=== PATIENT | female | born 1965 | race African-American/Black ===

== ENCOUNTER 2024-03-21 06:58 | Inpatient (IN) | payer OTHER ==
[~2024-03-21] VITALS: Ht 165.1 cm; Wt 81.2 kg
[2024-03-21 08:25] LABS: BASOPHILS % 0.7 % (0.0-2.0); HEMATOCRIT. 37.9 % (36.0-48.0); HEMOGLOBIN. 11.7 g/dL (12.0-16.0); LYMPHOCYTES % 11.4 % (20.0-50.0); MEAN CORPUSCULAR HEMOGLOBIN 26.3 pg (28.0-32.0); MEAN CORPUSCULAR HGB CONC 30.9 g/dL (31.0-37.0); MEAN CORPUSCULAR VOLUME 84.9 fL (81.0-99.0); MEAN PLATELET VOLUME 7.2 fl (7.4-10.4); MONOCYTES % 9.5 % (2.0-8.0); NEUTROPHILS % 78.4 % (40.0-76.0); PLATELET 394 x1000/uL (130-400); RED BLOOD CELL COUNT 4.47 mill/uL (4.2-5.4); RED CELL DISTRIBUTION WIDTH 21.2 % (11.6-14.6); WHITE BLOOD COUNT 3.9 x1000/uL (4.5-11.0)
[2024-03-21 08:38] LABS: PROTHROMBIN TIME 11.3 sec (9.6-11.0)
[2024-03-21 08:39] LABS: CHLORIDE 103 mEq/L (98-107); POTASSIUM 3.7 mEq/L (3.5-5.1); SODIUM 139 mEq/L (136-145)
[2024-03-21 08:40] LABS: CARBON DIOXIDE 24 mEq/L (21-32)
[2024-03-21 08:41] LABS: CALCIUM 8.1 mg/dL (8.7-10.4)
[2024-03-21 08:45] LABS: GLUCOSE 157 mg/dL (70-105); TROPONIN I HIGH SENSITIVITY 12 ng/L (3.0-34); UREA NITROGEN BLOOD 28 mg/dL (9-23)
[2024-03-21 08:47] LABS: ALANINE AMINOTRANSFERASE < 7 IU/L (10-49); ALBUMIN 3.7 g/dL (3.2-4.8); ASPARTATE AMINOTRANSFERASE 22 IU/L (<34)
[2024-03-21 08:48] LABS: BILIRUBIN TOTAL 0.4 mg/dL (0.1-1.0); CREATININE 7.2 mg/dL (0.6-1.0); PROTEIN TOTAL 8.3 g/dL (6.0-8.3)
[2024-03-21 09:19] LABS: CLARITY URINE TURBID (CLEAR); COLOR URINE DARK YELLOW (YELLOW); GLUCOSE URINE NEGATIVE (NEGATIVE); KETONES URINE TRACE (NEGATIVE); LEUKOCYTE ESTERASE URINE 3+ (NEGATIVE); NITRITE URINE NEGATIVE (NEGATIVE); OCCULT BLOOD URINE TRACE (NEGATIVE); PH URINE 6.5 (4.5-8.0); PROTEIN URINE 3+ (NEGATIVE); SPECIFIC GRAVITY URINE 1.017 (1.005-1.030)
[2024-03-21 09:41] LABS: SQUAMOUS EPITHELIAL CELL URINE RARE /lpf (RARE/1+); WBC URINE TNTC /hpf (0-2)
[2024-03-21 09:42] LABS: BACTERIA URINE 4+
[2024-03-21] MEDS: PIPERACILLIN/TAZO 3.375G/50ML 50 ML IV ONE (09:47)
[2024-03-21] MEDS: VANCOMYCIN 1G PREMIX 200 ML IV ONE (10:09)
[2024-03-21] MEDS: ACETAMINOPHEN 325MG TABLET PO ONE (11:10)
[2024-03-21] MEDS ORDERED: ONDANSETRON HCL 4MG/2ML INJ IV PRN (15:15)
[2024-03-21] MEDS ORDERED: PIPERACILLIN/TAZOBACTAM 3.375 G in DEXTROSE 5% WATER 50 ML IV SCH (15:15)
[2024-03-21] MEDS ORDERED: IPRATROPIUM/ALBUTEROL 0.5-3(2.5)MG/3ML NEB HHN PRN (15:15)
[2024-03-21 15:23] LABS: HEPATITIS B SURFACE ANTIGEN NEGATIVE (Negative)
[2024-03-21 15:44] LABS: HEPATITIS A AB IGM NEGATIVE (Negative)
[2024-03-21 15:45] LABS: HEPATITIS B CORE AB IGM NEGATIVE (Negative); HEPATITIS C AB NON REACTIVE (Neg) (Negative)
[2024-03-21] MEDS ORDERED: VANCOMYCIN 500MG PREMIX 100 ML IV NR (16:00)
[2024-03-21] MEDS ORDERED: DEXTROSE 50% WATER 50ML SYRINGE IV PRN ×2 (16:45→17:30)
[2024-03-21 17:00] VITALS: BP 133/71; PULSE 91; RESP 18; TEMP 97.9
[2024-03-21] MEDS ORDERED: BLOOD SUGAR DIAGNOSTIC STRIP TEST SCH (17:10)
[2024-03-21] MEDS ORDERED: INSULIN LISPRO 100 UNITS/ML SUBCUT SCH (17:40)
[2024-03-21] MEDS: INSULIN LISPRO 100 UNITS/ML SUBCUT SCH (19:04)
[2024-03-21 20:00] VITALS: BP 134/73; PULSE 94; RESP 18; TEMP 99
[2024-03-21] MEDS: PIPERACILLIN/TAZO 3.375G/50ML IV SCH (21:16)
[2024-03-21] MEDS: VANCOMYCIN 500MG PREMIX 100 ML IV NR (21:16)
[2024-03-21] MEDS: BLOOD SUGAR DIAGNOSTIC STRIP TEST SCH (21:17)
[2024-03-21] MEDS: INSULIN LISPRO 100 UNITS/ML SUBCUT NR (23:46)
[2024-03-22] VITALS (10 sets, daily range): BP systolic 115–152; BP diastolic 55–88; PULSE 67–86; RESP 16–18; TEMP 97.3–98.6
[2024-03-22] MEDS: ACETAMINOPHEN 325MG TABLET PO PRN (03:10)
[2024-03-22] MEDS ORDERED: HYDR100T26 PO (05:49)
[2024-03-22] MEDS ORDERED: ATEN-42 PO (05:49)
[2024-03-22 08:14] LABS: HEMOGLOBIN. 9.1 g/dL (12.0-16.0); MEAN CORPUSCULAR HEMOGLOBIN 25.6 pg (28.0-32.0); MEAN CORPUSCULAR HGB CONC 31.2 g/dL (31.0-37.0); MEAN PLATELET VOLUME 7.3 fl (7.4-10.4); PLATELET 285 x1000/uL (130-400); RED BLOOD CELL COUNT 3.53 mill/uL (4.2-5.4); RED CELL DISTRIBUTION WIDTH 20.7 % (11.6-14.6); WHITE BLOOD COUNT 3.8 x1000/uL (4.5-11.0)
[2024-03-22 08:17] LABS: DIFFERENTIAL COMMENT 1
[2024-03-22 08:43] LABS: CARBON DIOXIDE 24 mEq/L (21-32); CHLORIDE 99 mEq/L (98-107); POTASSIUM 4.2 mEq/L (3.5-5.1); SODIUM 135 mEq/L (136-145)
[2024-03-22 08:49] LABS: GLUCOSE 298 mg/dL (70-105); UREA NITROGEN BLOOD 41 mg/dL (9-23)
[2024-03-22 08:50] LABS: ALANINE AMINOTRANSFERASE < 7 IU/L (10-49); ALBUMIN 3.1 g/dL (3.2-4.8)
[2024-03-22 08:51] LABS: CREATININE 8.3 mg/dL (0.6-1.0)
[2024-03-22 08:59] LABS: CALCIUM 7.3 mg/dL (8.7-10.4)
[2024-03-22 09:05] LABS: ASPARTATE AMINOTRANSFERASE 13 IU/L (<34); BILIRUBIN TOTAL 0.5 mg/dL (0.1-1.0)
[2024-03-22 09:06] LABS: PROTEIN TOTAL 6.7 g/dL (6.0-8.3)
[2024-03-22 13:53] LABS: ANISOCYTOSIS 2+; PLATELET ESTIMATE NORMAL
[2024-03-22] MEDS: INSULIN GLARGINE 100 UNITS/ML SUBCUT SCH (22:11)
[2024-03-23] VITALS (7 sets, daily range): BP systolic 154–167; BP diastolic 82–97; PULSE 77–86; RESP 18–20; TEMP 97.2–98.2
[2024-03-23 15:21] LABS: HEMATOCRIT. 31.6 % (36.0-48.0); HEMOGLOBIN. 9.9 g/dL (12.0-16.0); MEAN CORPUSCULAR HEMOGLOBIN 26.1 pg (28.0-32.0); MEAN CORPUSCULAR HGB CONC 31.4 g/dL (31.0-37.0); MEAN CORPUSCULAR VOLUME 83.1 fL (81.0-99.0); MEAN PLATELET VOLUME 6.9 fl (7.4-10.4); PLATELET 284 x1000/uL (130-400); RED CELL DISTRIBUTION WIDTH 20.2 % (11.6-14.6); WHITE BLOOD COUNT 3.1 x1000/uL (4.5-11.0)
[2024-03-23 15:27] LABS: DIFFERENTIAL COMMENT 1
[2024-03-23 15:29] LABS: POTASSIUM 3.4 mEq/L (3.5-5.1)
[2024-03-23 15:30] LABS: CALCIUM 7.3 mg/dL (8.7-10.4)
[2024-03-23 15:47] LABS: CREATININE 7.9 mg/dL (0.6-1.0)
[2024-03-23 16:05] LABS: ANISOCYTOSIS 1+; PLATELET ESTIMATE NORMAL
[2024-03-23] MEDS: CLONIDINE 0.1MG TABLET PO PRN (21:23)
[2024-03-23] MEDS: LINEZOLID 600MG TABLET PO SCH (21:35)
[2024-03-23] MEDS: DIPHENHYDRAMINE 50MG/ML VIAL IV PRN (21:35)
[2024-03-24] VITALS (15 sets, daily range): BP systolic 142–176; BP diastolic 83–99; PULSE 77–90; RESP 16–20; TEMP 97.2–98.6
[2024-03-24] MEDS: POTASSIUM CHLORIDE 20MEQ TABLET SR PO NR (06:31)
[2024-03-24 11:19] LABS: HEMATOCRIT. 33.6 % (36.0-48.0); HEMOGLOBIN. 10.5 g/dL (12.0-16.0); MEAN CORPUSCULAR HEMOGLOBIN 25.9 pg (28.0-32.0); MEAN CORPUSCULAR HGB CONC 31.2 g/dL (31.0-37.0); MEAN CORPUSCULAR VOLUME 82.9 fL (81.0-99.0); MEAN PLATELET VOLUME 7.3 fl (7.4-10.4); PLATELET 260 x1000/uL (130-400); RED BLOOD CELL COUNT 4.05 mill/uL (4.2-5.4); RED CELL DISTRIBUTION WIDTH 20.9 % (11.6-14.6); WHITE BLOOD COUNT 3.2 x1000/uL (4.5-11.0)
[2024-03-24 11:25] LABS: DIFFERENTIAL COMMENT 1; POTASSIUM 4.2 mEq/L (3.5-5.1)
[2024-03-24 11:26] LABS: CALCIUM 7.3 mg/dL (8.7-10.4)
[2024-03-24 12:03] LABS: CREATININE 8.5 mg/dL (0.6-1.0)
[2024-03-24 20:50] LABS: PLATELET ESTIMATE NORMAL
[2024-03-24 20:51] LABS: ANISOCYTOSIS 1+
[2024-03-25] VITALS: BP 137/72; PULSE 85; RESP 18; TEMP 97.8
[2024-03-25 04:00] VITALS: BP 159/93; PULSE 86; RESP 16; TEMP 97.9
[2024-03-25 07:26] LABS: HEMATOCRIT. 33.8 % (36.0-48.0); HEMOGLOBIN. 10.8 g/dL (12.0-16.0); MEAN CORPUSCULAR VOLUME 81.4 fL (81.0-99.0); MEAN PLATELET VOLUME 7.2 fl (7.4-10.4); PLATELET 237 x1000/uL (130-400); RED BLOOD CELL COUNT 4.15 mill/uL (4.2-5.4); RED CELL DISTRIBUTION WIDTH 20.7 % (11.6-14.6); WHITE BLOOD COUNT 3.4 x1000/uL (4.5-11.0)
[2024-03-25 07:29] LABS: DIFFERENTIAL COMMENT 1
[2024-03-25 08:00] VITALS: BP 156/84; PULSE 90; RESP 20; TEMP 98
[2024-03-25 08:01] LABS: POTASSIUM 3.9 mEq/L (3.5-5.1)
[2024-03-25 08:02] LABS: CALCIUM 7.6 mg/dL (8.7-10.4)
[2024-03-25 08:16] LABS: CREATININE 7.7 mg/dL (0.6-1.0)
[2024-03-25 11:04] LABS: ANISOCYTOSIS 2+; PLATELET ESTIMATE NORMAL
[2024-03-25] MEDS ORDERED: LOPERAMIDE HCL 2MG CAPSULE PO PRN (11:15)
[2024-03-25 12:00] VITALS: BP 159/85; PULSE 88; RESP 18; TEMP 97.7
[2024-03-25 16:00] VITALS: BP 159/83; PULSE 91; RESP 18; TEMP 98.1
[2024-03-25 20:00] VITALS: BP 160/82; PULSE 93; RESP 16; TEMP 97.1
[2024-03-25] MEDS ORDERED: AMOX1TAB16 MT (20:19)
[2024-03-25] MEDS ORDERED: LINE600T14 MT (20:19)
[2024-03-26] VITALS (8 sets, daily range): BP systolic 135–178; BP diastolic 77–100; PULSE 74–89; RESP 16–20; TEMP 97.3–98; O2SAT 100
[2024-03-26 07:21] LABS: CALCIUM 7.5 mg/dL (8.7-10.4); POTASSIUM 4.1 mEq/L (3.5-5.1)
[2024-03-26 07:34] LABS: CREATININE 8.7 mg/dL (0.6-1.0)
[2024-03-26 08:02] LABS: HEMATOCRIT 30.9 % (36.0-48.0); HEMOGLOBIN 9.9 g/dL (12.0-16.0); MEAN CORPUSCULAR HGB CONC 32.1 g/dL (31.0-37.0); MEAN CORPUSCULAR VOLUME 81.1 fL (81.0-99.0); PLATELET 220 x1000/uL (130-400); RED BLOOD CELL COUNT 3.81 mill/uL (4.2-5.4); RED CELL DISTRIBUTION WIDTH 20.5 % (11.6-14.6); WHITE BLOOD COUNT 3.2 x1000/uL (4.5-11.0)
== END 2024-03-26 14:30 | disposition home or self-care (01) | DRG 871 ==
LOC: ER 06:58 → 5WST 10:22 → EDBEDREQTM 10:32 → EDBEDREQ 10:32 → 8WST 16:35
PROVIDERS: ADMIT Internal Medicine; ATTEND Internal Medicine
PROC: 5A1D70Z Performance of Urinary Filtration, Intermittent, Less than 6 Hours Per Day (ICD-10-PCS; principal; 2024-03-22)
PROC: 5A1D70Z Performance of Urinary Filtration, Intermittent, Less than 6 Hours Per Day (ICD-10-PCS; 2024-03-24)
PROC: 5A1D70Z Performance of Urinary Filtration, Intermittent, Less than 6 Hours Per Day (ICD-10-PCS; 2024-03-26)
DX: A41.9 Sepsis, unspecified organism (principal); G93.41 Metabolic encephalopathy; J18.9 Pneumonia, unspecified organism; N18.6 End stage renal disease; N39.0 Urinary tract infection, site not specified; E46 Unspecified protein-calorie malnutrition; Z16.21 Resistance to vancomycin; I12.0 Hypertensive chronic kidney disease with stage 5 chronic kidney disease or end stage renal disease; E11.65 Type 2 diabetes mellitus with hyperglycemia; R60.0 Localized edema; D64.9 Anemia, unspecified; E11.22 Type 2 diabetes mellitus with diabetic chronic kidney disease; Z87.01 Personal history of pneumonia (recurrent); Z87.440 Personal history of urinary (tract) infections; Z99.2 Dependence on renal dialysis; Z79.4 Long term (current) use of insulin; Z68.29 Body mass index [BMI] 29.0-29.9, adult
CPT/HCPCS: 36415; 71045; 80048; 80053; 80202; 81003; 82962; 83036; 83605; 83735; 84100; 84145; 84484; 85025; 85027; 86705; 86709; 87077; 87186; 87340; 90935; 93005; 93970; 99285; J1200; J1815; J2543; J3370

== ENCOUNTER 2024-08-19 09:28 | Inpatient (IN) | payer OTHER, MEDICAID ==
[2024-08-19] VITALS (12 sets, daily range): BP systolic 107–169; BP diastolic 71–99; PULSE 78–94; RESP 18–22; TEMP 36.72516–37.00296; O2SAT 93–100
[~2024-08-19] VITALS: Ht 167.6 cm; Wt 65.8 kg
[~2024-08-19 09:28] MED LIST: AMOX1TAB16 MT; ATEN-42 PO; HYDR100T11 PO; LINE600T14 MT
[2024-08-19] MEDS: METHYLPREDNISOLONE SOD SUCC 125MG/2ML (ACT-O-VIAL) IV STA (10:57)
[2024-08-19 11:23] LABS: BASOPHILS % 0.7 % (0.0-2.0); HEMATOCRIT. 31.3 % (36.0-48.0); HEMOGLOBIN. 9.7 g/dL (12.0-16.0); LYMPHOCYTES % 15.4 % (20.0-50.0); MEAN CORPUSCULAR HEMOGLOBIN 27.3 pg (28.0-32.0); MEAN CORPUSCULAR HGB CONC 30.8 g/dL (31.0-37.0); MEAN CORPUSCULAR VOLUME 88.5 fL (81.0-99.0); MEAN PLATELET VOLUME 6.4 fl (7.4-10.4); MONOCYTES % 11.7 % (2.0-8.0); NEUTROPHILS % 65.2 % (40.0-76.0); PLATELET 229 x1000/uL (130-400); RED BLOOD CELL COUNT 3.53 mill/uL (4.2-5.4); RED CELL DISTRIBUTION WIDTH 20.4 % (11.6-14.6); WHITE BLOOD COUNT 4.8 x1000/uL (4.5-11.0)
[2024-08-19 11:31] LABS: CARBON DIOXIDE 25 mEq/L (21-32); CHLORIDE 102 mEq/L (98-107); POTASSIUM 4.3 mEq/L (3.5-5.1); SODIUM 137 mEq/L (136-145)
[2024-08-19 11:32] LABS: CALCIUM 9.4 mg/dL (8.7-10.4)
[2024-08-19 11:34] LABS: PROTHROMBIN TIME 10.7 sec (9.6-11.0)
[2024-08-19] MEDS: IPRATROPIUM BROMIDE (0.02%) 0.5MG/2.5ML NEB HHN STA (11:35)
[2024-08-19] MEDS: ALBUTEROL (0.083%) 2.5MG/3ML NEB HHN SCH (11:36)
[2024-08-19 11:37] LABS: GLUCOSE 286 mg/dL (70-105); UREA NITROGEN BLOOD 46 mg/dL (9-23)
[2024-08-19 11:47] LABS: CREATININE 7.4 mg/dL (0.6-1.0)
[2024-08-19 12:14] LABS: TROPONIN I HIGH SENSITIVITY 43 ng/L (3.0-34)
[2024-08-19] MEDS: HYDRALAZINE 20MG/ML VIAL IV ONE (13:02)
[2024-08-19] MEDS ORDERED: IPRATROPIUM/ALBUTEROL 0.5-3(2.5)MG/3ML NEB HHN PRN (13:15)
[2024-08-19] MEDS ORDERED: DOCUSATE SODIUM 100MG CAPSULE PO PRN (13:15)
[2024-08-19] MEDS ORDERED: MAGNESIUM/ALUMINUM HYDROXIDE/SIMETHICONE 30ML UDC PO PRN (13:15)
[2024-08-19] MEDS ORDERED: ONDANSETRON HCL 4MG/2ML INJ IV PRN (13:15)
[2024-08-19] MEDS ORDERED: GUAIFENESIN 200MG/10ML SUGAR FREE UDC PO PRN (13:15)
[2024-08-19] MEDS ORDERED: ACETAMINOPHEN 325MG TABLET PO PRN (13:15)
[2024-08-19] MEDS ORDERED: DEXTROSE 50% WATER 50ML SYRINGE IV PRN ×2 (13:30→14:00)
[2024-08-19] MEDS: FAMOTIDINE 20MG/2ML VIAL IV SCH (13:45)
[2024-08-19] MEDS ORDERED: LEVO25TA7 PO (13:47)
[2024-08-19] MEDS ORDERED: CALC667C PO (13:47)
[2024-08-19] MEDS ORDERED: CLOP75TA33 PO (13:47)
[2024-08-19] MEDS ORDERED: ASPI-1406 PO (13:47)
[2024-08-19] MEDS ORDERED: ATOR40TA70 PO (13:47)
[2024-08-19] MEDS: ASPIRIN 81MG EC TABLET PO SCH (14:00)
[2024-08-19] MEDS: CALCIUM ACETATE 667MG CAPSULE PO SCH (14:00)
[2024-08-19] MEDS: INSULIN GLARGINE 100 UNITS/ML SUBCUT SCH (14:00)
[2024-08-19] MEDS: CLOPIDOGREL 75MG TABLET PO SCH (14:00)
[2024-08-19] MEDS: LEVOTHYROXINE SODIUM 25MCG TABLET PO ONE (14:00)
[2024-08-19] MEDS: ENOXAPARIN 30MG/0.3ML SYR SUBCUT SCH (14:00)
[2024-08-19] MEDS: HYDRALAZINE HCL 100MG TABLET PO SCH (14:00)
[2024-08-19] MEDS: AMLODIPINE 10MG TABLET PO SCH (16:00)
[2024-08-19 16:02] LABS: IRON 38 ug/dL (50-170)
[2024-08-19 16:04] LABS: TROPONIN I HIGH SENSITIVITY 33 ng/L (3.0-34)
[2024-08-19 16:05] LABS: TOTAL IRON BINDING CAPACITY 227 ug/dl (250-425)
[2024-08-19 16:23] LABS: BETA HYDROXYBUTYRATE 0.9 mMol/L (0.0-0.3)
[2024-08-19] MEDS: BLOOD SUGAR DIAGNOSTIC STRIP TEST SCH (17:00)
[2024-08-19] MEDS ORDERED: LEVOTHYROXINE SODIUM 25MCG TABLET PO NR (18:30)
[2024-08-19] MEDS: INSULIN LISPRO 100 UNITS/ML SUBCUT SCH (18:55)
[2024-08-19] MEDS: ATORVASTATIN CALCIUM 40MG TABLET PO SCH (22:31)
[2024-08-19 23:40] LABS: POTASSIUM 5.1 mEq/L (3.5-5.1)
[2024-08-19 23:41] LABS: CALCIUM 9.4 mg/dL (8.7-10.4)
[2024-08-19] MEDS: CLONIDINE 0.1MG TABLET PO PRN (23:56)
[2024-08-19 23:59] LABS: CREATININE 5.8 mg/dL (0.6-1.0)
[2024-08-20] VITALS (10 sets, daily range): BP systolic 127–177; BP diastolic 61–100; PULSE 63–88; RESP 16–19; TEMP 36.16956–36.8072; O2SAT 100
[2024-08-20] MEDS: MORPHINE SULFATE 2 MG/ML INJ (NOT FOR IM USE) IV NR (00:51)
[2024-08-20 07:14] LABS: BASOPHILS % 0.5 % (0.0-2.0); HEMATOCRIT. 28.8 % (36.0-48.0); HEMOGLOBIN. 8.9 g/dL (12.0-16.0); LYMPHOCYTES % 9.1 % (20.0-50.0); MEAN CORPUSCULAR HEMOGLOBIN 27.4 pg (28.0-32.0); MEAN CORPUSCULAR HGB CONC 30.9 g/dL (31.0-37.0); MEAN CORPUSCULAR VOLUME 88.9 fL (81.0-99.0); MEAN PLATELET VOLUME 6.9 fl (7.4-10.4); MONOCYTES % 5.9 % (2.0-8.0); NEUTROPHILS % 84.5 % (40.0-76.0); PLATELET 196 x1000/uL (130-400); POTASSIUM 6.1 mEq/L (3.5-5.1); RED BLOOD CELL COUNT 3.24 mill/uL (4.2-5.4); RED CELL DISTRIBUTION WIDTH 20.9 % (11.6-14.6); WHITE BLOOD COUNT 4.4 x1000/uL (4.5-11.0)
[2024-08-20 07:21] LABS: ALANINE AMINOTRANSFERASE < 7 IU/L (10-49); ALBUMIN 3.9 g/dL (3.2-4.8); ASPARTATE AMINOTRANSFERASE 10 IU/L (<34); BILIRUBIN DIRECT 0.2 mg/dL (<=3.0); BILIRUBIN TOTAL 0.6 mg/dL (0.1-1.0); PROTEIN TOTAL 7.8 g/dL (6.0-8.3)
[2024-08-20 07:24] LABS: T4 FREE 0.94 ng/dL (0.89-1.76); THYROID STIMULATING HORMONE 1.06 uIU/mL (0.55-4.78)
[2024-08-20 07:44] LABS: CREATININE 6.3 mg/dL (0.6-1.0)
[2024-08-20] MEDS: MORPHINE SULFATE 2 MG/ML INJ (NOT FOR IM USE) IV PRN (08:47)
[2024-08-20] MEDS: INSULIN LISPRO 100 UNITS/ML SUBCUT NR (09:08)
[2024-08-20] MEDS ORDERED: SODIUM POLYSTYRENE SULFONATE 15 G/60 ML BOT PO ONE (09:15)
[2024-08-20] MEDS: ATENOLOL 25MG TABLET PO SCH (13:50)
[2024-08-20] MEDS: SODIUM ZIRCONIUM CYCLOSILICATE 10GM/PACKET PO NR (13:53)
[2024-08-20] MEDS: INSULIN LISPRO 100 UNITS/ML SUBCUT SCH ×2 (13:57)
[2024-08-20] MEDS: INSULIN GLARGINE 100 UNITS/ML SUBCUT SCH (21:22)
[2024-08-21 04:00] VITALS: BP 137/59; PULSE 66; RESP 19; TEMP 36.55848
[2024-08-21 07:10] LABS: HEMATOCRIT 32.1 % (36.0-48.0); HEMOGLOBIN 9.7 g/dL (12.0-16.0)
[2024-08-21 07:18] LABS: POTASSIUM 4.4 mEq/L (3.5-5.1)
[2024-08-21 07:19] LABS: CALCIUM 8.7 mg/dL (8.7-10.4)
[2024-08-21 07:26] LABS: PHOSPHORUS 2.8 mg/dL (2.5-4.9)
[2024-08-21 07:28] LABS: CREATININE 5.6 mg/dL (0.6-1.0)
[2024-08-21 08:00] VITALS: BP 125/65; PULSE 77; TEMP 36.114
[2024-08-21 10:50] LABS: POTASSIUM 4.1 mEq/L (3.5-5.1)
[2024-08-21 10:51] LABS: CALCIUM 8.5 mg/dL (8.7-10.4)
[2024-08-21 10:54] LABS: BASOPHILS % 0.8 % (0.0-2.0); EOSINOPHILS % 7.7 % (0.0-5.0); HEMATOCRIT. 31.2 % (36.0-48.0); HEMOGLOBIN. 9.5 g/dL (12.0-16.0); MEAN CORPUSCULAR HEMOGLOBIN 27.2 pg (28.0-32.0); MEAN CORPUSCULAR HGB CONC 30.4 g/dL (31.0-37.0); MEAN CORPUSCULAR VOLUME 89.6 fL (81.0-99.0); MEAN PLATELET VOLUME 7.2 fl (7.4-10.4); MONOCYTES % 8.8 % (2.0-8.0); NEUTROPHILS % 67.7 % (40.0-76.0); PLATELET 235 x1000/uL (130-400); RED BLOOD CELL COUNT 3.48 mill/uL (4.2-5.4); RED CELL DISTRIBUTION WIDTH 21.6 % (11.6-14.6); WHITE BLOOD COUNT 4.6 x1000/uL (4.5-11.0)
[2024-08-21 10:57] LABS: CREATININE 5.8 mg/dL (0.6-1.0)
[2024-08-21 12:00] VITALS: BP 131/66; PULSE 66; TEMP 36.61404
[2024-08-21] MEDS ORDERED: INSU100I28 SUBCUT (12:56)
[2024-08-21] MEDS ORDERED: INSU100I53 SUBCUT (12:56)
[2024-08-21] MEDS ORDERED: CALC0.253 PO (12:57)
[2024-08-21 16:00] VITALS: BP 128/86; PULSE 84; TEMP 36.78072
[2024-08-21] MEDS: ACETAMINOPHEN 325MG TABLET PO PRN (16:40)
[2024-08-21 17:30] VITALS: BP 128/86; PULSE 88; TEMP 98.2; O2SAT 98
== END 2024-08-21 18:00 | disposition home or self-care (01) | DRG 280 ==
LOC: ER 09:28 → 5WST 13:05 → EDBEDREQTM 13:11 → EDBEDREQ 13:11 → 7WST 08-20 09:22
PROVIDERS: ADMIT Hospitalist; ATTEND Hospitalist
PROC: 5A1D70Z Performance of Urinary Filtration, Intermittent, Less than 6 Hours Per Day (ICD-10-PCS; principal; 2024-08-19)
PROC: 5A1D70Z Performance of Urinary Filtration, Intermittent, Less than 6 Hours Per Day (ICD-10-PCS; 2024-08-20)
DX: I13.2 Hypertensive heart and chronic kidney disease with heart failure and with stage 5 chronic kidney disease, or end stage renal disease (principal); I50.43 Acute on chronic combined systolic (congestive) and diastolic (congestive) heart failure; I21.A1 Myocardial infarction type 2; J96.21 Acute and chronic respiratory failure with hypoxia; N18.6 End stage renal disease; I16.1 Hypertensive emergency; Z99.2 Dependence on renal dialysis; Z98.61 Coronary angioplasty status; I25.2 Old myocardial infarction; I25.10 Atherosclerotic heart disease of native coronary artery without angina pectoris; E11.22 Type 2 diabetes mellitus with diabetic chronic kidney disease; E11.65 Type 2 diabetes mellitus with hyperglycemia; J44.9 Chronic obstructive pulmonary disease, unspecified; K21.9 Gastro-esophageal reflux disease without esophagitis; Z99.81 Dependence on supplemental oxygen; E03.9 Hypothyroidism, unspecified; R33.9 Retention of urine, unspecified; D64.9 Anemia, unspecified; Z79.82 Long term (current) use of aspirin; Z79.899 Other long term (current) drug therapy; Z79.4 Long term (current) use of insulin; Z79.02 Long term (current) use of antithrombotics/antiplatelets
CPT/HCPCS: 36415; 71045; 80048; 80061; 80076; 82010; 82040; 82550; 82728; 82962; 83036; 83540; 83550; 83605; 83880; 84100; 84132; 84439; 84443; 84484; 85014; 85018; 85025; 90935; 93005; 94640; 99285; J0360; J1650; J1815; J2270; J2919; J3490

== ENCOUNTER 2024-08-25 18:22 | Inpatient (IN) | payer OTHER, MEDICAID ==
[~2024-08-25] VITALS: Ht 172.7 cm; Wt 72.1 kg
[~2024-08-25 18:22] MED LIST changes: -AMOX1TAB16 MT; +ASPI-1406 PO; +ATOR40TA70 PO; +CALC0.253 PO; +CALC667C PO; +CLOP75TA33 PO; +INSU100I28 SUBCUT; +INSU100I53 SUBCUT; +LEVO25TA7 PO; -LINE600T14 MT
[2024-08-25] MEDS: ONDANSETRON HCL 4MG/2ML INJ IV STA (19:30)
[2024-08-25] MEDS: MORPHINE SULFATE 4 MG/ML INJ (FOR IV/IM USE) IV STA (19:30)
[2024-08-25 21:40] LABS: HEMATOCRIT. 27.4 % (36.0-48.0); HEMOGLOBIN. 8.4 g/dL (12.0-16.0); MEAN CORPUSCULAR HEMOGLOBIN 27.1 pg (28.0-32.0); MEAN CORPUSCULAR HGB CONC 30.5 g/dL (31.0-37.0); MEAN CORPUSCULAR VOLUME 88.8 fL (81.0-99.0); MEAN PLATELET VOLUME 7.4 fl (7.4-10.4); PLATELET 169 x1000/uL (130-400); RED BLOOD CELL COUNT 3.08 mill/uL (4.2-5.4); RED CELL DISTRIBUTION WIDTH 20.8 % (11.6-14.6); WHITE BLOOD COUNT 5.5 x1000/uL (4.5-11.0)
[2024-08-25 21:42] LABS: DIFFERENTIAL COMMENT 1
[2024-08-25 21:45] LABS: CARBON DIOXIDE 26 mEq/L (21-32); CHLORIDE 106 mEq/L (98-107); POTASSIUM 4.8 mEq/L (3.5-5.1); SODIUM 139 mEq/L (136-145)
[2024-08-25 21:46] LABS: CALCIUM 8.6 mg/dL (8.7-10.4)
[2024-08-25 21:48] LABS: PROTHROMBIN TIME 11.4 sec (9.6-11.0)
[2024-08-25 21:50] LABS: GLUCOSE 107 mg/dL (70-105)
[2024-08-25 21:51] LABS: UREA NITROGEN BLOOD 66 mg/dL (9-23)
[2024-08-25 21:52] LABS: ALANINE AMINOTRANSFERASE < 7 IU/L (10-49); ALBUMIN 3.5 g/dL (3.2-4.8); ASPARTATE AMINOTRANSFERASE 9 IU/L (<34)
[2024-08-25 21:53] LABS: BILIRUBIN TOTAL 0.4 mg/dL (0.1-1.0)
[2024-08-25 22:17] LABS: CREATININE 8.7 mg/dL (0.6-1.0); TROPONIN I HIGH SENSITIVITY 86 ng/L (3.0-34)
[2024-08-25 22:22] LABS: ANISOCYTOSIS 1+; PLATELET ESTIMATE NORMAL
[2024-08-25 23:00] LABS: TROPONIN I HIGH SENSITIVITY 88 ng/L (3.0-34)
[2024-08-25] MEDS: NITROGLYCERIN 0.4MG TABLET SL SL PRN (23:20)
[2024-08-25] MEDS ORDERED: DEXTROSE 50% WATER 50ML SYRINGE IV PRN (23:30)
[2024-08-25] MEDS ORDERED: CLONIDINE 0.1MG TABLET PO PRN (23:30)
[2024-08-25] MEDS ORDERED: GUAIFENESIN 200MG/10ML SUGAR FREE UDC PO PRN (23:30)
[2024-08-25] MEDS ORDERED: ONDANSETRON HCL 4MG/2ML INJ IV PRN (23:30)
[2024-08-25] MEDS ORDERED: DOCUSATE SODIUM 100MG CAPSULE PO PRN (23:30)
[2024-08-25] MEDS ORDERED: IPRATROPIUM/ALBUTEROL 0.5-3(2.5)MG/3ML NEB HHN PRN (23:30)
[2024-08-25] MEDS ORDERED: ACETAMINOPHEN 325MG TABLET PO PRN (23:30)
[2024-08-26] VITALS (16 sets, daily range): BP systolic 110–161; BP diastolic 49–91; PULSE 58–85; RESP 16–20; TEMP 35.89176–36.78072; O2SAT 91–100
[2024-08-26] MEDS: ATORVASTATIN CALCIUM 40MG TABLET PO SCH (00:10)
[2024-08-26] MEDS: ASPIRIN 81MG TABLET PO SCH (00:10)
[2024-08-26] MEDS: ACETAMINOPHEN 325MG TABLET PO PRN (02:22)
[2024-08-26] MEDS: KETOROLAC 15MG/ML VIAL IV NR (03:33)
[2024-08-26 07:24] LABS: HEMOGLOBIN. 8.6 g/dL (12.0-16.0); MEAN CORPUSCULAR HEMOGLOBIN 28.3 pg (28.0-32.0); MEAN CORPUSCULAR HGB CONC 31.8 g/dL (31.0-37.0); MEAN CORPUSCULAR VOLUME 89.1 fL (81.0-99.0); MEAN PLATELET VOLUME 7.6 fl (7.4-10.4); PLATELET 170 x1000/uL (130-400); RED BLOOD CELL COUNT 3.04 mill/uL (4.2-5.4); RED CELL DISTRIBUTION WIDTH 20.8 % (11.6-14.6); WHITE BLOOD COUNT 5.2 x1000/uL (4.5-11.0)
[2024-08-26 07:29] LABS: CHLORIDE 106 mEq/L (98-107); POTASSIUM 5.4 mEq/L (3.5-5.1); SODIUM 140 mEq/L (136-145)
[2024-08-26 07:30] LABS: CALCIUM 8.7 mg/dL (8.7-10.4); CARBON DIOXIDE 25 mEq/L (21-32)
[2024-08-26 07:35] LABS: GLUCOSE 127 mg/dL (70-105); UREA NITROGEN BLOOD 68 mg/dL (9-23)
[2024-08-26 07:36] LABS: CREATINE KINASE MB FRACTION < 0.5 ng/mL (0.5-3.6)
[2024-08-26 07:37] LABS: ALANINE AMINOTRANSFERASE < 7 IU/L (10-49); ALBUMIN 3.7 g/dL (3.2-4.8); ASPARTATE AMINOTRANSFERASE 10 IU/L (<34); BILIRUBIN TOTAL 0.3 mg/dL (0.1-1.0); PROTEIN TOTAL 7.1 g/dL (6.0-8.3)
[2024-08-26 07:39] LABS: CREATINE KINASE 23 IU/L (34-145); CREATININE 9.3 mg/dL (0.6-1.0)
[2024-08-26 07:42] LABS: DIFFERENTIAL COMMENT 1
[2024-08-26 07:43] LABS: TROPONIN I HIGH SENSITIVITY 128 ng/L (3.0-34)
[2024-08-26] MEDS: AMLODIPINE 5MG TABLET PO SCH (08:35)
[2024-08-26] MEDS: BLOOD SUGAR DIAGNOSTIC STRIP TEST SCH (08:35)
[2024-08-26] MEDS: INSULIN LISPRO 100 UNITS/ML SUBCUT SCH (08:39)
[2024-08-26] MEDS: ENOXAPARIN 30MG/0.3ML SYR SUBCUT SCH (08:42)
[2024-08-26 11:50] LABS: HEPATITIS B SURFACE ANTIGEN NEGATIVE (Negative)
[2024-08-26 11:56] LABS: ANISOCYTOSIS 2+; PLATELET ESTIMATE NORMAL
[2024-08-26] MEDS: SEVELAMER CARBONATE 800 MG TABLET PO SCH (12:10)
[2024-08-26 12:11] LABS: HEPATITIS A AB IGM NEGATIVE (Negative)
[2024-08-26 12:12] LABS: HEPATITIS B CORE AB IGM NEGATIVE (Negative); HEPATITIS C AB NON REACTIVE (Neg) (Negative)
[2024-08-26] MEDS: LORAZEPAM 0.5MG TABLET PO PRN (13:42)
[2024-08-26 16:35] LABS: CREATINE KINASE MB FRACTION 0.8 ng/mL (0.5-3.6)
[2024-08-26] MEDS ORDERED: LEVETIRACETAM 500MG in NACL 100ML PREMIX IV SCH (21:00)
[2024-08-26 21:22] LABS: TROPONIN I HIGH SENSITIVITY 91 ng/L (3.0-34)
[2024-08-26] MEDS: LEVETIRACETAM 500MG PREMIX 100ML IV SCH (22:46)
[2024-08-27 04:00] VITALS: BP 137/70; PULSE 91; RESP 18; TEMP 36.55848; O2SAT 96
[2024-08-27 08:00] VITALS: BP 176/111; PULSE 90; RESP 18; TEMP 36.50292; O2SAT 98
[2024-08-27] MEDS: FOLIC ACID/VITAMIN B COMP W-C TABLET PO SCH (09:25)
[2024-08-27 10:53] LABS: HEMOGLOBIN. 9.3 g/dL (12.0-16.0); MEAN CORPUSCULAR HEMOGLOBIN 27.2 pg (28.0-32.0); MEAN CORPUSCULAR HGB CONC 30.1 g/dL (31.0-37.0); MEAN CORPUSCULAR VOLUME 90.5 fL (81.0-99.0); MEAN PLATELET VOLUME 8.2 fl (7.4-10.4); PLATELET 204 x1000/uL (130-400); RED BLOOD CELL COUNT 3.42 mill/uL (4.2-5.4); WHITE BLOOD COUNT 4.9 x1000/uL (4.5-11.0)
[2024-08-27 10:54] LABS: CALCIUM 8.4 mg/dL (8.7-10.4); POTASSIUM 4.9 mEq/L (3.5-5.1)
[2024-08-27 10:58] LABS: DIFFERENTIAL COMMENT 1
[2024-08-27 11:17] LABS: CREATININE 7.5 mg/dL (0.6-1.0)
[2024-08-27] MEDS: INSULIN LISPRO 100 UNITS/ML SUBCUT NR (11:56)
[2024-08-27 12:00] VITALS: BP 156/78; PULSE 86; RESP 18; TEMP 36.44736; O2SAT 98
[2024-08-27] MEDS: INSULIN GLARGINE 100 UNITS/ML SUBCUT NR (15:03)
[2024-08-27 16:00] VITALS: BP 140/75; PULSE 80; RESP 18; TEMP 36.50292; O2SAT 98
[2024-08-27 20:00] VITALS: BP 136/75; PULSE 66; RESP 16; TEMP 36.50292; O2SAT 98
[2024-08-27 22:20] LABS: ANISOCYTOSIS 1+; PLATELET ESTIMATE NORMAL
[2024-08-28] VITALS: BP 119/64; PULSE 68; RESP 19; TEMP 36.50292; O2SAT 96
[2024-08-28 04:00] VITALS: BP 114/60; PULSE 66; RESP 19; TEMP 36.22512; O2SAT 97
[2024-08-28 08:00] VITALS: BP 136/61; PULSE 69; RESP 18; TEMP 36.61404; O2SAT 93
[2024-08-28 12:00] VITALS: BP 128/63; PULSE 72; RESP 20; TEMP 36.50292; O2SAT 95
[2024-08-28] MEDS: MORPHINE SULFATE 2 MG/ML INJ (NOT FOR IM USE) IV NR (14:15)
[2024-08-28 14:22] VITALS: BP 128/63; PULSE 74; TEMP 97.7; O2SAT 91
[2024-08-28 16:00] VITALS: BP 104/58; PULSE 63; RESP 18; TEMP 36.78072; O2SAT 98
== END 2024-08-28 17:30 | disposition home or self-care (01) | DRG 189 ==
LOC: ER 19:07 → MICUSO 22:12 → EDBEDREQ 22:24 → 7EST 08-26 10:06
PROVIDERS: ADMIT Preventive Medicine Clinical Informatics; ATTEND Preventive Medicine Clinical Informatics
PROC: 5A1D70Z Performance of Urinary Filtration, Intermittent, Less than 6 Hours Per Day (ICD-10-PCS; principal; 2024-08-26)
PROC: 5A1D70Z Performance of Urinary Filtration, Intermittent, Less than 6 Hours Per Day (ICD-10-PCS; 2024-08-28)
DX: J96.21 Acute and chronic respiratory failure with hypoxia (principal); I21.A1 Myocardial infarction type 2; N18.6 End stage renal disease; I13.2 Hypertensive heart and chronic kidney disease with heart failure and with stage 5 chronic kidney disease, or end stage renal disease; I16.1 Hypertensive emergency; R18.8 Other ascites; I50.32 Chronic diastolic (congestive) heart failure; D63.1 Anemia in chronic kidney disease; I25.10 Atherosclerotic heart disease of native coronary artery without angina pectoris; J44.9 Chronic obstructive pulmonary disease, unspecified; E87.5 Hyperkalemia; E11.22 Type 2 diabetes mellitus with diabetic chronic kidney disease; R16.0 Hepatomegaly, not elsewhere classified; R33.9 Retention of urine, unspecified; Z99.2 Dependence on renal dialysis; Z91.158 Patient's noncompliance with renal dialysis for other reason; Z99.81 Dependence on supplemental oxygen; Z79.4 Long term (current) use of insulin; Z79.82 Long term (current) use of aspirin; Z79.899 Other long term (current) drug therapy; Z98.61 Coronary angioplasty status
CPT/HCPCS: 36415; 71045; 76705; 80048; 80053; 82040; 82550; 82553; 82962; 83036; 83880; 84484; 85025; 86705; 86709; 87340; 90935; 93005; 99285; J1650; J1815; J1885; J1953; J2270; J2405

== ENCOUNTER 2024-09-07 20:49 | Inpatient (IN) | payer OTHER ==
[~2024-09-07] VITALS: Ht 177.8 cm; Wt 74.4 kg
[2024-09-07 20:53] VITALS: O2SAT 99
[2024-09-07] MEDS: NALOXONE HCL 0.4MG/ML 1ML VIAL IV ONE (21:34)
[2024-09-07 23:10] LABS: BASOPHILS % 0.4 % (0.0-2.0); HEMATOCRIT. 31.8 % (36.0-48.0); LYMPHOCYTES % 20.6 % (20.0-50.0); MEAN CORPUSCULAR HEMOGLOBIN 27.8 pg (28.0-32.0); MEAN CORPUSCULAR HGB CONC 31.6 g/dL (31.0-37.0); MEAN PLATELET VOLUME 7.2 fl (7.4-10.4); MONOCYTES % 15.1 % (2.0-8.0); NEUTROPHILS % 61.9 % (40.0-76.0); PLATELET 289 x1000/uL (130-400); RED BLOOD CELL COUNT 3.61 mill/uL (4.2-5.4); RED CELL DISTRIBUTION WIDTH 21.6 % (11.6-14.6); WHITE BLOOD COUNT 3.6 x1000/uL (4.5-11.0)
[2024-09-07 23:14] LABS: DIFFERENTIAL COMMENT 1
[2024-09-07 23:16] LABS: CHLORIDE 107 mEq/L (98-107); POTASSIUM 4.5 mEq/L (3.5-5.1); SODIUM 144 mEq/L (136-145)
[2024-09-07 23:17] LABS: CALCIUM 8.7 mg/dL (8.7-10.4); CARBON DIOXIDE 31 mEq/L (21-32)
[2024-09-07 23:22] LABS: TROPONIN I HIGH SENSITIVITY 26 ng/L (3.0-34); UREA NITROGEN BLOOD 24 mg/dL (9-23)
[2024-09-07 23:48] LABS: BG BASE EXCESS 4.6 mmol/L (-2.0-3.0); BG CARBOXYHEMOGLOBIN 0.9 % (0.5-1.5); BG DEOXYHEMOGLOBIN 16.9 % (0.0-5.0); BG FRACTION INSPIRED OXYGEN 40; BG HCO3 ACT 32.3 mmol/L (21.0-28.0); BG METHEMOGLOBIN 0.1 % (0.5-1.5); BG OXYGEN SATURATION 82.9 % (94.0-98.0); BG OXYHEMOGLOBIN 82.1 % (94.0-98.0); BG PCO2 63.9 mmHg (32.0-45.0); BG PH 7.321 (7.350-7.450); BG PO2 50.7 mmHg (83.0-108.0); BG SAMPLE SITE RIGHT BRACHIAL; BG TOTAL HEMOGLOBIN 11.7 g/dL (12.0-16.0)
[2024-09-08 00:14] LABS: CREATININE 5.9 mg/dL (0.6-1.0); ETHANOL BLOOD < 10 mg/dL (<10); GLUCOSE 16 mg/dL (70-105)
[2024-09-08 00:15] LABS: BETA HYDROXYBUTYRATE < 0.1 mMol/L (0.0-0.3)
[2024-09-08] MEDS: DEXTROSE 50% WATER 50ML SYRINGE IV ONE ×2 (00:21→00:50)
[2024-09-08 09:52] LABS: BG BASE EXCESS -0.4 mmol/L (-2.0-3.0); BG CARBOXYHEMOGLOBIN 0.2 % (0.5-1.5); BG DEOXYHEMOGLOBIN 9.3 % (0.0-5.0); BG FRACTION INSPIRED OXYGEN 44; BG HCO3 ACT 24.3 mmol/L (21.0-28.0); BG METHEMOGLOBIN 0.3 % (0.5-1.5); BG OXYGEN SATURATION 90.7 % (94.0-98.0); BG OXYHEMOGLOBIN 90.2 % (94.0-98.0); BG PCO2 39.9 mmHg (32.0-45.0); BG PH 7.402 (7.350-7.450); BG PO2 59.6 mmHg (83.0-108.0); BG SAMPLE SITE LEFT BRACHIAL; BG TOTAL HEMOGLOBIN 10.6 g/dL (12.0-16.0); BG VENT MODE NASAL CANNULA
[2024-09-08] MEDS ORDERED: IPRATROPIUM/ALBUTEROL 0.5-3(2.5)MG/3ML NEB HHN PRN (12:00)
[2024-09-08 12:51] LABS: HEMATOCRIT. 31.9 % (36.0-48.0); MEAN CORPUSCULAR HEMOGLOBIN 28.2 pg (28.0-32.0); MEAN CORPUSCULAR HGB CONC 31.5 g/dL (31.0-37.0); MEAN CORPUSCULAR VOLUME 89.4 fL (81.0-99.0); MEAN PLATELET VOLUME 7.2 fl (7.4-10.4); PLATELET 276 x1000/uL (130-400); RED BLOOD CELL COUNT 3.56 mill/uL (4.2-5.4); RED CELL DISTRIBUTION WIDTH 21.2 % (11.6-14.6); WHITE BLOOD COUNT 8.9 x1000/uL (4.5-11.0)
[2024-09-08 12:52] LABS: DIFFERENTIAL COMMENT 1
[2024-09-08 12:56] LABS: CARBON DIOXIDE 27 mEq/L (21-32); CHLORIDE 102 mEq/L (98-107); POTASSIUM 6.1 mEq/L (3.5-5.1); SODIUM 136 mEq/L (136-145)
[2024-09-08 12:57] LABS: CALCIUM 8.4 mg/dL (8.7-10.4)
[2024-09-08] MEDS ORDERED: IPRATROPIUM/ALBUTEROL 0.5-3(2.5)MG/3ML NEB NEB PRN (13:00)
[2024-09-08 13:02] LABS: UREA NITROGEN BLOOD 32 mg/dL (9-23)
[2024-09-08 13:04] LABS: ALANINE AMINOTRANSFERASE < 7 IU/L (10-49); ALBUMIN 3.7 g/dL (3.2-4.8); ASPARTATE AMINOTRANSFERASE 12 IU/L (<34); BILIRUBIN TOTAL 0.4 mg/dL (0.1-1.0); PHOSPHORUS 2.3 mg/dL (2.5-4.9); PROTEIN TOTAL 7.8 g/dL (6.0-8.3)
[2024-09-08 13:10] LABS: CREATININE 6.8 mg/dL (0.6-1.0)
[2024-09-08 13:16] LABS: GLUCOSE 415 mg/dL (70-105)
[2024-09-08] MEDS: CALCIUM ACETATE 667MG CAPSULE PO SCH (13:41)
[2024-09-08] MEDS: ASPIRIN 81MG EC TABLET PO SCH (13:41)
[2024-09-08] MEDS: HYDRALAZINE HCL 100MG TABLET PO SCH (13:41)
[2024-09-08] MEDS: PIPERACILLIN/TAZO 3.375G/50ML 50 ML IV SCH (14:19)
[2024-09-08 14:33] LABS: ANISOCYTOSIS 2+; PLATELET ESTIMATE NORMAL
[2024-09-08] MEDS: ENOXAPARIN 30MG/0.3ML SYR SUBCUT SCH (15:00)
[2024-09-08] MEDS: VANCOMYCIN 1.5GM/250ML 250 ML IV NR (16:35)
[2024-09-08] MEDS: INSULIN LISPRO 100 UNITS/ML SUBCUT SCH (17:21)
[2024-09-08 18:34] LABS: CREATINE KINASE MB FRACTION 0.8 ng/mL (0.5-3.6)
[2024-09-08 18:47] VITALS: BP 147/74; PULSE 81; RESP 15; TEMP 36.114; O2SAT 95
[2024-09-08 19:30] VITALS: BP 132/69; PULSE 66; RESP 20; TEMP 36.5848
[2024-09-08 19:33] LABS: *AMPHETAMINES SCREEN URINE NEGATIVE (NEGATIVE); *BARBITURATES SCREEN URINE NEGATIVE (NEGATIVE); *BENZODIAZEPINES SCREEN URINE PRESUMPTIVE POSITIVE (NEGATIVE); *COCAINE SCREEN URINE NEGATIVE (NEGATIVE); METHADONE URINE SCREEN NEGATIVE (NEGATIVE); OPIATES URINE SCREEN PRESUMPTIVE POSITIVE (NEGATIVE)
[2024-09-08 19:34] LABS: CANNABINOID URINE SCREEN NEGATIVE (NEGATIVE); ECSTASY MDMA SCREEN URINE NEGATIVE (NEGATIVE); PHENCYCLIDINE URINE SCREEN NEGATIVE (NEGATIVE)
[2024-09-08 20:00] VITALS: BP 113/61; PULSE 77; RESP 18; TEMP 36.78072; O2SAT 98
[2024-09-08 20:53] LABS: HEPATITIS B SURFACE ANTIGEN NEGATIVE (Negative)
[2024-09-08 21:13] LABS: HEPATITIS A AB IGM NEGATIVE (Negative)
[2024-09-08 21:14] LABS: HEPATITIS B CORE AB IGM NEGATIVE (Negative)
[2024-09-08 21:15] LABS: HEPATITIS C AB NON REACTIVE (Neg) (Negative)
[2024-09-08] MEDS: ATORVASTATIN CALCIUM 40MG TABLET PO SCH (22:04)
[2024-09-09] VITALS (10 sets, daily range): BP systolic 80–135; BP diastolic 37–73; PULSE 60–78; RESP 18–20; TEMP 36.33624–36.78072; O2SAT 98–100
[2024-09-09 01:10] LABS: CREATINE KINASE 28 IU/L (34-145)
[2024-09-09 01:11] LABS: CREATINE KINASE MB FRACTION < 0.5 ng/mL (0.5-3.6)
[2024-09-09 01:12] LABS: TROPONIN I HIGH SENSITIVITY 21 ng/L (3.0-34)
[2024-09-09] MEDS: ACETAMINOPHEN 325MG TABLET PO PRN (03:10)
[2024-09-09] MEDS: ONDANSETRON HCL 4MG/2ML INJ IV PRN (05:08)
[2024-09-09] MEDS: INSULIN LISPRO 100 UNITS/ML SUBCUT SCH (08:10)
[2024-09-09] MEDS: LEVOTHYROXINE SODIUM 25MCG TABLET PO SCH (08:28)
[2024-09-09] MEDS: CLOPIDOGREL 75MG TABLET PO SCH (08:29)
[2024-09-09] MEDS: CALCITRIOL 0.25MCG CAPSULE PO SCH (08:29)
[2024-09-09] MEDS: ATENOLOL 25MG TABLET PO SCH (08:30)
[2024-09-09] MEDS: PANTOPRAZOLE SODIUM 40 MG/VIAL IV SCH (08:30)
[2024-09-09] MEDS: BLOOD SUGAR DIAGNOSTIC STRIP TEST SCH (12:39)
[2024-09-09] MEDS: PIPERACILLIN/TAZO 3.375G/50ML 50 ML IV SCH (12:39)
[2024-09-09] MEDS: VANCOMYCIN 750MG PMX (XELLIA) 150 ML IV SCH (21:35)
[2024-09-10] VITALS: BP 94/56; PULSE 99; RESP 18; TEMP 36.55848; O2SAT 99
[2024-09-10 04:00] VITALS: BP 91/44; PULSE 65; RESP 20; TEMP 37.16964; O2SAT 98
[2024-09-10 08:00] VITALS: BP 85/54; PULSE 66; RESP 20; TEMP 36.33624; O2SAT 97
[2024-09-10] MEDS ORDERED: SODIUM CHLORIDE 0.9% 250 ML IV ONE (08:15)
[2024-09-10] MEDS: SODIUM CHLORIDE 0.9% 250 ML IV ONE (08:31)
[2024-09-10 12:00] VITALS: BP 134/66; PULSE 74; RESP 18; TEMP 36.89184; O2SAT 99
[2024-09-10 16:00] VITALS: BP 108/60; PULSE 63; RESP 18; TEMP 36.89184; O2SAT 100
[2024-09-10] MEDS: DEXTROSE 50% WATER 50ML SYRINGE IV PRN (17:27)
[2024-09-10 17:52] LABS: HEMATOCRIT. 27.9 % (36.0-48.0); HEMOGLOBIN. 8.9 g/dL (12.0-16.0); MEAN CORPUSCULAR HEMOGLOBIN 27.9 pg (28.0-32.0); MEAN CORPUSCULAR HGB CONC 31.8 g/dL (31.0-37.0); MEAN CORPUSCULAR VOLUME 87.6 fL (81.0-99.0); MEAN PLATELET VOLUME 7.2 fl (7.4-10.4); PLATELET 205 x1000/uL (130-400); RED BLOOD CELL COUNT 3.18 mill/uL (4.2-5.4); WHITE BLOOD COUNT 6.7 x1000/uL (4.5-11.0)
[2024-09-10 17:53] LABS: DIFFERENTIAL COMMENT 1
[2024-09-10 17:59] LABS: POTASSIUM 4.7 mEq/L (3.5-5.1)
[2024-09-10 18:01] LABS: CALCIUM 9.6 mg/dL (8.7-10.4)
[2024-09-10 18:16] LABS: CREATININE 7.5 mg/dL (0.6-1.0)
[2024-09-10 20:00] VITALS: BP 115/64; PULSE 63; RESP 19; TEMP 36.33624; O2SAT 98
[2024-09-10 21:03] LABS: PLATELET ESTIMATE NORMAL
[2024-09-10 21:04] LABS: ANISOCYTOSIS 2+; HYPOCHROMASIA 1+
[2024-09-10] MEDS ORDERED: INSULIN GLARGINE 100 UNITS/ML SUBCUT SCH (22:00)
[2024-09-10] MEDS: HYDROCODONE/ACETAMINOPHEN 5/325MG TABLET PO PRN (22:48)
[2024-09-11] VITALS (13 sets, daily range): BP systolic 80–130; BP diastolic 42–70; PULSE 53–87; RESP 14–19; TEMP 36.114–37.05852; O2SAT 94–98
[2024-09-11] MEDS ORDERED: DEXTROSE 50% WATER 50ML SYRINGE IV PRN (09:00)
[2024-09-11] MEDS: INSULIN LISPRO 100 UNITS/ML SUBCUT NR (09:45)
[2024-09-11 10:47] LABS: HEMATOCRIT. 30.7 % (36.0-48.0); MEAN CORPUSCULAR HEMOGLOBIN 26.7 pg (28.0-32.0); MEAN CORPUSCULAR HGB CONC 29.3 g/dL (31.0-37.0); MEAN CORPUSCULAR VOLUME 91.1 fL (81.0-99.0); PLATELET 194 x1000/uL (130-400); RED BLOOD CELL COUNT 3.37 mill/uL (4.2-5.4); RED CELL DISTRIBUTION WIDTH 21.2 % (11.6-14.6); WHITE BLOOD COUNT 6.8 x1000/uL (4.5-11.0)
[2024-09-11 10:53] LABS: CALCIUM 9.5 mg/dL (8.7-10.4)
[2024-09-11 10:54] LABS: DIFFERENTIAL COMMENT 1
[2024-09-11 11:07] LABS: CREATININE 8.3 mg/dL (0.6-1.0)
[2024-09-11] MEDS: INSULIN LISPRO 100 UNITS/ML SUBCUT SCH (13:47)
[2024-09-11 16:16] LABS: ANISOCYTOSIS 3+; PLATELET ESTIMATE NORMAL
[2024-09-11] MEDS: INSULIN GLARGINE 100 UNITS/ML SUBCUT SCH (22:40)
[2024-09-12] VITALS (7 sets, daily range): BP systolic 93–119; BP diastolic 47–60; PULSE 57–78; RESP 18–20; TEMP 36.22512–37.05852; O2SAT 95–100
[2024-09-12] MEDS ORDERED: INSU100I28 SQ (11:07)
[2024-09-12 11:28] LABS: POTASSIUM 4.6 mEq/L (3.5-5.1)
[2024-09-12 11:29] LABS: BASOPHILS % 0.5 % (0.0-2.0); EOSINOPHILS % 1.8 % (0.0-5.0); HEMATOCRIT. 29.3 % (36.0-48.0); LYMPHOCYTES % 14.5 % (20.0-50.0); MEAN CORPUSCULAR HEMOGLOBIN 27.2 pg (28.0-32.0); MEAN CORPUSCULAR HGB CONC 30.7 g/dL (31.0-37.0); MEAN CORPUSCULAR VOLUME 88.4 fL (81.0-99.0); MEAN PLATELET VOLUME 7.9 fl (7.4-10.4); MONOCYTES % 12.1 % (2.0-8.0); NEUTROPHILS % 71.1 % (40.0-76.0); PLATELET 208 x1000/uL (130-400); RED BLOOD CELL COUNT 3.32 mill/uL (4.2-5.4)
[2024-09-12 11:38] LABS: CREATININE 6.8 mg/dL (0.6-1.0)
== END 2024-09-12 20:05 | disposition home health service (06) | DRG 280 ==
LOC: ER 20:49 → 5WST 09-08 01:13 → 7WST 09-08 18:27
PROVIDERS: ADMIT Internal Medicine; ATTEND Internal Medicine
PROC: 5A1D70Z Performance of Urinary Filtration, Intermittent, Less than 6 Hours Per Day (ICD-10-PCS; principal; 2024-09-09)
PROC: 5A1D70Z Performance of Urinary Filtration, Intermittent, Less than 6 Hours Per Day (ICD-10-PCS; 2024-09-11)
DX: I13.2 Hypertensive heart and chronic kidney disease with heart failure and with stage 5 chronic kidney disease, or end stage renal disease (principal); G93.41 Metabolic encephalopathy; I21.4 Non-ST elevation (NSTEMI) myocardial infarction; J96.21 Acute and chronic respiratory failure with hypoxia; N18.6 End stage renal disease; I50.33 Acute on chronic diastolic (congestive) heart failure; J96.22 Acute and chronic respiratory failure with hypercapnia; I16.1 Hypertensive emergency; G40.909 Epilepsy, unspecified, not intractable, without status epilepticus; E11.649 Type 2 diabetes mellitus with hypoglycemia without coma; E11.22 Type 2 diabetes mellitus with diabetic chronic kidney disease; R33.9 Retention of urine, unspecified; E66.9 Obesity, unspecified; D63.1 Anemia in chronic kidney disease; I25.10 Atherosclerotic heart disease of native coronary artery without angina pectoris; E87.5 Hyperkalemia; G31.9 Degenerative disease of nervous system, unspecified; Z95.5 Presence of coronary angioplasty implant and graft; Z99.2 Dependence on renal dialysis; Z99.81 Dependence on supplemental oxygen; Z79.4 Long term (current) use of insulin; Z74.01 Bed confinement status; Z68.23 Body mass index [BMI] 23.0-23.9, adult
CPT/HCPCS: 36415; 36600; 71045; 80048; 80053; 80202; 80305; 80320; 82010; 82375; 82550; 82553; 82805; 82962; 83036; 83735; 84100; 84484; 85025; 86705; 86709; 87340; 90935; 99285; J1650; J1815; J2310; J2405; J2470; J2543; J3370; G0480

== ENCOUNTER 2024-09-21 01:42 | Inpatient (IN) | payer OTHER ==
[~2024-09-21] VITALS: Ht 172.7 cm; Wt 72.6 kg
[2024-09-21 01:32] LABS: HEMATOCRIT. 33.7 % (36.0-48.0); HEMOGLOBIN. 10.5 g/dL (12.0-16.0); MEAN CORPUSCULAR HEMOGLOBIN 27.5 pg (28.0-32.0); MEAN CORPUSCULAR VOLUME 88.7 fL (81.0-99.0); MEAN PLATELET VOLUME 7.3 fl (7.4-10.4); PLATELET 193 x1000/uL (130-400); WHITE BLOOD COUNT 2.8 x1000/uL (4.5-11.0)
[2024-09-21 01:33] LABS: DIFFERENTIAL COMMENT 1
[~2024-09-21 01:42] MED LIST changes: +INSU100I28 SQ; -INSU100I28 SUBCUT
[2024-09-21] MEDS: DEXTROSE 50% WATER 50ML SYRINGE IV ONE (01:53)
[2024-09-21] MEDS: TRAMADOL 50MG TABLET PO ONE (01:54)
[2024-09-21 02:14] LABS: CHLORIDE 99 mEq/L (98-107); POTASSIUM 3.8 mEq/L (3.5-5.1); SODIUM 137 mEq/L (136-145)
[2024-09-21 02:15] LABS: CARBON DIOXIDE 27 mEq/L (21-32)
[2024-09-21 02:16] LABS: CALCIUM 9.2 mg/dL (8.7-10.4)
[2024-09-21 02:20] LABS: GLUCOSE 59 mg/dL (70-105)
[2024-09-21 02:21] LABS: UREA NITROGEN BLOOD 21 mg/dL (9-23)
[2024-09-21 02:22] LABS: ALANINE AMINOTRANSFERASE 9 IU/L (10-49); ASPARTATE AMINOTRANSFERASE 15 IU/L (<34)
[2024-09-21 02:23] LABS: BILIRUBIN TOTAL 0.6 mg/dL (0.1-1.0); LACTIC ACID 2.3 mmol/L (0.4-2.0); PROTEIN TOTAL 8.3 g/dL (6.0-8.3)
[2024-09-21 03:06] LABS: CREATININE 5.5 mg/dL (0.6-1.0)
[2024-09-21 05:09] LABS: TROPONIN I HIGH SENSITIVITY 67 ng/L (3.0-34)
[2024-09-21 06:11] LABS: PLATELET ESTIMATE NORMAL
[2024-09-21] MEDS ORDERED: HYDRALAZINE 20MG/ML VIAL IV PRN (08:45)
[2024-09-21] MEDS ORDERED: MAGNESIUM/ALUMINUM HYDROXIDE/SIMETHICONE 30ML UDC PO PRN (08:45)
[2024-09-21] MEDS ORDERED: DEXTROSE 50% WATER 50ML SYRINGE IV PRN (08:45)
[2024-09-21] MEDS ORDERED: ACETAMINOPHEN 325MG TABLET PO PRN ×2 (08:45)
[2024-09-21] MEDS ORDERED: DIPHENHYDRAMINE 50MG/ML VIAL IV PRN (08:45)
[2024-09-21] MEDS ORDERED: CLONIDINE 0.1MG TABLET PO PRN (08:45)
[2024-09-21] MEDS ORDERED: NALOXONE HCL 0.4MG/ML VIAL IV PRN (09:00)
[2024-09-21] MEDS: INSULIN LISPRO 100 UNITS/ML SUBCUT SCH (09:00)
[2024-09-21] MEDS: BLOOD SUGAR DIAGNOSTIC STRIP TEST SCH (09:09)
[2024-09-21] MEDS: PANTOPRAZOLE 40MG DR TABLET PO SCH (09:28)
[2024-09-21] MEDS: CLOPIDOGREL 75MG TABLET PO SCH (09:28)
[2024-09-21] MEDS: ONDANSETRON HCL 4MG/2ML INJ IV PRN (09:29)
[2024-09-21] MEDS: MORPHINE SULFATE 2 MG/ML INJ (NOT FOR IM USE) IV PRN (09:29)
[2024-09-21] MEDS: CALCITRIOL 0.25MCG CAPSULE PO SCH (09:54)
[2024-09-21] MEDS: LEVOTHYROXINE SODIUM 75MCG TABLET PO SCH (09:55)
[2024-09-21 14:00] VITALS: BP 123/67; PULSE 72; RESP 20; TEMP 36.418
[2024-09-21] MEDS: SODIUM CHLORIDE 0.9% 3ML FLUSH IVF SCH (15:40)
[2024-09-21 20:00] VITALS: BP 123/70; PULSE 68; RESP 18; TEMP 36.55848; O2SAT 97
[2024-09-22] VITALS: BP 122/63; PULSE 73; RESP 19; TEMP 37.16964; O2SAT 96
[2024-09-22 04:00] VITALS: BP 130/70; PULSE 70; RESP 18; TEMP 36.89184; O2SAT 97
[2024-09-22 08:00] VITALS: BP 126/64; PULSE 82; RESP 19; TEMP 37.00296; O2SAT 98
[2024-09-22 12:00] VITALS: BP 110/80; PULSE 84; RESP 20; TEMP 36.33624; O2SAT 97
[2024-09-22 14:56] VITALS: BP 110/80; PULSE 84; RESP 20; TEMP 36.114; TEMP 36.11400; O2SAT 97
[2024-09-22 15:36] VITALS: BP 129/73; PULSE 78; TEMP 98.1; O2SAT 96
== END 2024-09-22 17:04 | disposition home or self-care (01) | DRG 637 ==
LOC: ER 01:42 → EDBEDREQ 03:18 → 7WST 03:31 → EDBEDREQ 03:43 → EDBEDREQTM 03:43 → EDBEDREQSVC 03:43
PROVIDERS: ADMIT Internal Medicine; ATTEND Internal Medicine
DX: E11.649 Type 2 diabetes mellitus with hypoglycemia without coma (principal); G93.41 Metabolic encephalopathy; I13.2 Hypertensive heart and chronic kidney disease with heart failure and with stage 5 chronic kidney disease, or end stage renal disease; N18.6 End stage renal disease; D63.1 Anemia in chronic kidney disease; D72.819 Decreased white blood cell count, unspecified; E11.22 Type 2 diabetes mellitus with diabetic chronic kidney disease; F41.1 Generalized anxiety disorder; I25.10 Atherosclerotic heart disease of native coronary artery without angina pectoris; M21.962 Unspecified acquired deformity of left lower leg; I50.9 Heart failure, unspecified; Z99.2 Dependence on renal dialysis; Z79.4 Long term (current) use of insulin
CPT/HCPCS: 36415; 71045; 73620; 80053; 82962; 83605; 84443; 84484; 85025; 93005; 99291; J0360; J1200; J1815; J2270; J2405

== ENCOUNTER 2024-09-26 09:03 | Emergency (ER) | payer OTHER ==
[~2024-09-26] VITALS: Ht 165.1 cm; Wt 77.0 kg
[2024-09-26 09:06] VITALS: O2SAT 99
[2024-09-26] MEDS: SODIUM CHLORIDE 0.9% 1,000 ML IV ONE (09:38)
[2024-09-26] MEDS: ACETAMINOPHEN 1000MG/100ML 100 ML IV ONE (09:48)
[2024-09-26 10:24] LABS: BASOPHILS % 0.6 % (0.0-2.0); EOSINOPHILS % 0.2 % (0.0-5.0); HEMATOCRIT. 32.8 % (36.0-48.0); HEMOGLOBIN. 10.4 g/dL (12.0-16.0); LYMPHOCYTES % 12.9 % (20.0-50.0); MEAN CORPUSCULAR HEMOGLOBIN 27.8 pg (28.0-32.0); MEAN CORPUSCULAR HGB CONC 31.6 g/dL (31.0-37.0); MEAN PLATELET VOLUME 7.4 fl (7.4-10.4); MONOCYTES % 13.5 % (2.0-8.0); NEUTROPHILS % 72.8 % (40.0-76.0); PLATELET 194 x1000/uL (130-400); RED BLOOD CELL COUNT 3.73 mill/uL (4.2-5.4); RED CELL DISTRIBUTION WIDTH 19.1 % (11.6-14.6)
[2024-09-26 10:26] LABS: CARBON DIOXIDE 28 mEq/L (21-32); CHLORIDE 102 mEq/L (98-107); POTASSIUM 4.7 mEq/L (3.5-5.1); SODIUM 138 mEq/L (136-145)
[2024-09-26 10:27] LABS: CALCIUM 9.5 mg/dL (8.7-10.4)
[2024-09-26 10:32] LABS: GLUCOSE 201 mg/dL (70-105); UREA NITROGEN BLOOD 52 mg/dL (9-23)
[2024-09-26 10:33] LABS: ALANINE AMINOTRANSFERASE < 7 IU/L (10-49); ALBUMIN 3.8 g/dL (3.2-4.8); ASPARTATE AMINOTRANSFERASE 9 IU/L (<34)
[2024-09-26 10:34] LABS: BILIRUBIN DIRECT 0.1 mg/dL (<=3.0); BILIRUBIN TOTAL 0.3 mg/dL (0.1-1.0); PROTEIN TOTAL 8.1 g/dL (6.0-8.3)
[2024-09-26 10:39] LABS: CREATININE 8.3 mg/dL (0.6-1.0)
[2024-09-26 14:19] VITALS: BP 159/81; PULSE 71; RESP 18; TEMP 37.00296; O2SAT 99
== END 2024-09-26 14:19 | disposition home or self-care (01) ==
LOC: ER 09:03
DX: R41.82 Altered mental status, unspecified (principal); I11.0 Hypertensive heart disease with heart failure; I50.9 Heart failure, unspecified; Z79.899 Other long term (current) drug therapy; Z86.59 Personal history of other mental and behavioral disorders; Z91.158 Patient's noncompliance with renal dialysis for other reason
CPT/HCPCS: 99285; 74176; 96365; 80076; 80048; 82962; 83690; 85025; 36415; J7030; J0131

== ENCOUNTER 2024-10-13 15:19 | Inpatient (IN) | payer OTHER, MEDICAID ==
[~2024-10-13] VITALS: Ht 170.2 cm; Wt 63.5 kg
[~2024-10-13 15:19] MED LIST changes: -ATEN-42 PO; -CALC667C PO; +COR6 PO; -HYDR100T11 PO; +HYDR25TA78 PO; +LACT1CAP77 PO; -LEVO25TA7 PO; +LEVO75TA7 PO; +LINE600T11 PO; +PANT40TA51 PO
[2024-10-13 16:48] LABS: HEMOGLOBIN. 9.6 g/dL (12.0-16.0); MEAN CORPUSCULAR HEMOGLOBIN 28.1 pg (28.0-32.0); MEAN CORPUSCULAR HGB CONC 32.1 g/dL (31.0-37.0); MEAN CORPUSCULAR VOLUME 87.8 fL (81.0-99.0); MEAN PLATELET VOLUME 7.1 fl (7.4-10.4); PLATELET 145 x1000/uL (130-400); RED BLOOD CELL COUNT 3.41 mill/uL (4.2-5.4); RED CELL DISTRIBUTION WIDTH 17.5 % (11.6-14.6)
[2024-10-13 16:49] LABS: DIFFERENTIAL COMMENT 1
[2024-10-13 16:54] LABS: CHLORIDE 106 mEq/L (98-107); POTASSIUM 4.9 mEq/L (3.5-5.1); SODIUM 144 mEq/L (136-145)
[2024-10-13 16:55] LABS: CALCIUM 9.2 mg/dL (8.7-10.4); CARBON DIOXIDE 29 mEq/L (21-32)
[2024-10-13 17:00] LABS: GLUCOSE 66 mg/dL (70-105); UREA NITROGEN BLOOD 40 mg/dL (9-23)
[2024-10-13 17:01] LABS: ALANINE AMINOTRANSFERASE < 7 IU/L (10-49); AMMONIA < 17 uMol/L (<32)
[2024-10-13 17:02] LABS: ASPARTATE AMINOTRANSFERASE 11 IU/L (<34); BILIRUBIN DIRECT 0.1 mg/dL (<=3.0); BILIRUBIN TOTAL 0.4 mg/dL (0.1-1.0); PROTEIN TOTAL 8.1 g/dL (6.0-8.3)
[2024-10-13 17:16] LABS: ETHANOL BLOOD < 10 mg/dL (<10)
[2024-10-13 17:17] LABS: CREATININE 9.4 mg/dL (0.6-1.0); TROPONIN I HIGH SENSITIVITY 52 ng/L (3.0-34)
[2024-10-13] MEDS: ASPIRIN 325MG EC TABLET PO ONE (17:32)
[2024-10-13] MEDS: NITROGLYCERIN 0.4MG TABLET SL SL ONE (17:32)
[2024-10-13] MEDS: CLOPIDOGREL 75MG TABLET PO ONE (17:33)
[2024-10-13] MEDS ORDERED: MAGNESIUM/ALUMINUM HYDROXIDE/SIMETHICONE 30ML UDC PO PRN (19:15)
[2024-10-13] MEDS ORDERED: ONDANSETRON HCL 4MG/2ML INJ IV PRN (19:15)
[2024-10-13] MEDS: DEXT 5% WATER 250 ML IV ONE (20:27)
[2024-10-13] MEDS: BLOOD SUGAR DIAGNOSTIC STRIP TEST SCH (21:00)
[2024-10-13] MEDS: INSULIN LISPRO 100 UNITS/ML SUBCUT SCH (21:00)
[2024-10-13] MEDS: CARVEDILOL 6.25 MG TABLET PO SCH (21:00)
[2024-10-13 21:17] LABS: ANISOCYTOSIS 1+; PLATELET ESTIMATE NORMAL
[2024-10-13 21:45] VITALS: BP 168/78; PULSE 84; RESP 18; TEMP 37.44744; O2SAT 96
[2024-10-13] MEDS: SODIUM CHLORIDE 0.9% 3ML FLUSH IVF SCH (22:00)
[2024-10-13] MEDS: HYDRALAZINE HCL 25MG TABLET PO SCH (22:59)
[2024-10-14] VITALS (14 sets, daily range): BP systolic 97–181; BP diastolic 66–88; PULSE 73–86; RESP 16–20; TEMP 36.44736–37.66968; O2SAT 93–100
[2024-10-14] MEDS: HYDRALAZINE 20MG/ML VIAL IV PRN (02:34)
[2024-10-14] MEDS: PANTOPRAZOLE 40MG DR TABLET PO SCH (06:31)
[2024-10-14] MEDS: LEVOTHYROXINE SODIUM 75MCG TABLET PO SCH (06:32)
[2024-10-14] MEDS: ASPIRIN 81MG EC TABLET PO SCH (09:34)
[2024-10-14] MEDS: DIPHENHYDRAMINE 50MG/ML VIAL IV PRN (09:37)
[2024-10-14] MEDS ORDERED: CEFEPIME 2GM IN DEXT 5% 100ML IV ONE (16:15)
[2024-10-14] MEDS: CEFEPIME 1GM/50ML 50 ML IV NR (18:35)
[2024-10-14 18:38] LABS: HEPATITIS B SURFACE ANTIGEN NEGATIVE (Negative)
[2024-10-14 18:59] LABS: HEPATITIS A AB IGM NEGATIVE (Negative); HEPATITIS B CORE AB IGM NEGATIVE (Negative)
[2024-10-14 19:00] LABS: HEPATITIS C AB NON REACTIVE (Neg) (Negative)
[2024-10-14] MEDS: LINEZOLID 600MG TABLET PO SCH (20:06)
[2024-10-14] MEDS: LOPERAMIDE HCL 2MG CAPSULE PO PRN (20:08)
[2024-10-14] MEDS: MORPHINE SULFATE 2 MG/ML INJ (NOT FOR IM USE) IV PRN (20:34)
[2024-10-14] MEDS: INSULIN GLARGINE 100 UNITS/ML SUBCUT SCH (21:06)
[2024-10-15] VITALS (13 sets, daily range): BP systolic 113–162; BP diastolic 62–100; PULSE 63–78; RESP 16–20; TEMP 36.114–37.61412; O2SAT 96–100
[2024-10-15] MEDS: INSULIN GLARGINE 100 UNITS/ML SUBCUT NR (04:10)
[2024-10-15] MEDS: INSULIN LISPRO 100 UNITS/ML SUBCUT NR ×2 (05:57→10:37)
[2024-10-15 07:51] LABS: HEMATOCRIT. 27.6 % (36.0-48.0); HEMOGLOBIN. 8.5 g/dL (12.0-16.0); MEAN CORPUSCULAR HEMOGLOBIN 28.2 pg (28.0-32.0); MEAN CORPUSCULAR HGB CONC 30.7 g/dL (31.0-37.0); MEAN CORPUSCULAR VOLUME 91.9 fL (81.0-99.0); MEAN PLATELET VOLUME 8.1 fl (7.4-10.4); PLATELET 124 x1000/uL (130-400); RED BLOOD CELL COUNT 3.01 mill/uL (4.2-5.4); RED CELL DISTRIBUTION WIDTH 17.2 % (11.6-14.6)
[2024-10-15 08:35] LABS: CALCIUM 8.7 mg/dL (8.7-10.4)
[2024-10-15 08:46] LABS: POTASSIUM 6.3 mEq/L (3.5-5.1)
[2024-10-15 08:48] LABS: CREATININE 8.7 mg/dL (0.6-1.0)
[2024-10-15 08:54] LABS: DIFFERENTIAL COMMENT 1
[2024-10-15 15:51] LABS: PLATELET ESTIMATE NORMAL
[2024-10-16 04:00] VITALS: BP 158/85; PULSE 69; RESP 19; TEMP 36.78072; O2SAT 99
[2024-10-16 08:00] VITALS: BP 179/79; PULSE 71; RESP 20; TEMP 37.05852; O2SAT 98
[2024-10-16] MEDS: CLONIDINE 0.1MG TABLET PO PRN (09:22)
[2024-10-16 12:00] VITALS: BP 138/89; PULSE 80; RESP 22; TEMP 37.11408; O2SAT 95
[2024-10-16] MEDS: DEXTROSE 50% WATER 50ML SYRINGE IV PRN (12:47)
[2024-10-16 13:24] LABS: HEMATOCRIT. 27.2 % (36.0-48.0); HEMOGLOBIN. 8.6 g/dL (12.0-16.0); MEAN CORPUSCULAR HEMOGLOBIN 27.8 pg (28.0-32.0); MEAN CORPUSCULAR HGB CONC 31.6 g/dL (31.0-37.0); MEAN CORPUSCULAR VOLUME 88.1 fL (81.0-99.0); MEAN PLATELET VOLUME 7.7 fl (7.4-10.4); PLATELET 146 x1000/uL (130-400); RED BLOOD CELL COUNT 3.08 mill/uL (4.2-5.4); RED CELL DISTRIBUTION WIDTH 16.8 % (11.6-14.6); WHITE BLOOD COUNT 3.3 x1000/uL (4.5-11.0)
[2024-10-16 13:49] LABS: POTASSIUM 4.6 mEq/L (3.5-5.1)
[2024-10-16 13:50] LABS: CALCIUM 8.9 mg/dL (8.7-10.4)
[2024-10-16 13:57] LABS: DIFFERENTIAL COMMENT 1
[2024-10-16 14:40] LABS: CREATININE 7.7 mg/dL (0.6-1.0)
[2024-10-16 16:00] VITALS: BP 68/72; PULSE 66; RESP 18; TEMP 36.33624; O2SAT 97
[2024-10-16 20:00] VITALS: BP 154/77; PULSE 70; RESP 20; TEMP 36.3918; O2SAT 100
[2024-10-17] VITALS (9 sets, daily range): BP systolic 103–142; BP diastolic 54–97; PULSE 61–79; RESP 16–20; TEMP 36.28068–36.89184; O2SAT 96–99
[2024-10-17 06:44] LABS: POTASSIUM 4.7 mEq/L (3.5-5.1)
[2024-10-17 06:45] LABS: CALCIUM 8.7 mg/dL (8.7-10.4)
[2024-10-17 07:06] LABS: HEMATOCRIT. 27.3 % (36.0-48.0); HEMOGLOBIN. 8.8 g/dL (12.0-16.0); MEAN CORPUSCULAR HEMOGLOBIN 28.4 pg (28.0-32.0); MEAN CORPUSCULAR HGB CONC 32.2 g/dL (31.0-37.0); MEAN CORPUSCULAR VOLUME 88.1 fL (81.0-99.0); MEAN PLATELET VOLUME 7.9 fl (7.4-10.4); PLATELET 154 x1000/uL (130-400); RED BLOOD CELL COUNT 3.09 mill/uL (4.2-5.4); RED CELL DISTRIBUTION WIDTH 17.2 % (11.6-14.6); WHITE BLOOD COUNT 2.9 x1000/uL (4.5-11.0)
[2024-10-17 07:24] LABS: CREATININE 8.9 mg/dL (0.6-1.0)
[2024-10-17 07:43] LABS: ANISOCYTOSIS 1+; PLATELET ESTIMATE NORMAL
[2024-10-17 07:50] LABS: DIFFERENTIAL COMMENT 1
[2024-10-17 10:27] LABS: ANISOCYTOSIS 1+; PLATELET ESTIMATE NORMAL
[2024-10-18] VITALS: BP 131/65; PULSE 77; RESP 18; TEMP 36.55848; O2SAT 95
[2024-10-18 04:00] VITALS: BP 122/62; PULSE 72; RESP 16; TEMP 36.22512; O2SAT 96
[2024-10-18 08:00] VITALS: BP 138/65; PULSE 72; RESP 20; TEMP 36.55848; O2SAT 96
[2024-10-18 08:06] VITALS: BP 122/62; PULSE 72; TEMP 97.8; O2SAT 96
== END 2024-10-18 08:30 | disposition home or self-care (01) | DRG 871 ==
LOC: ER 15:19 → 5WST 17:12 → EDBEDREQ 17:13 → EDBEDREQTM 17:13 → 7WST 10-15 15:12
PROVIDERS: ADMIT Internal Medicine; ATTEND Internal Medicine
PROC: 5A1D70Z Performance of Urinary Filtration, Intermittent, Less than 6 Hours Per Day (ICD-10-PCS; principal; 2024-10-14)
PROC: 5A1D70Z Performance of Urinary Filtration, Intermittent, Less than 6 Hours Per Day (ICD-10-PCS; 2024-10-15)
PROC: 5A1D70Z Performance of Urinary Filtration, Intermittent, Less than 6 Hours Per Day (ICD-10-PCS; 2024-10-17)
DX: A41.9 Sepsis, unspecified organism (principal); G93.41 Metabolic encephalopathy; N18.6 End stage renal disease; I13.2 Hypertensive heart and chronic kidney disease with heart failure and with stage 5 chronic kidney disease, or end stage renal disease; I16.1 Hypertensive emergency; I50.32 Chronic diastolic (congestive) heart failure; I25.10 Atherosclerotic heart disease of native coronary artery without angina pectoris; D64.9 Anemia, unspecified; E87.5 Hyperkalemia; E87.70 Fluid overload, unspecified; H40.9 Unspecified glaucoma; R94.31 Abnormal electrocardiogram [ECG] [EKG]; R33.9 Retention of urine, unspecified; R94.4 Abnormal results of kidney function studies; E11.22 Type 2 diabetes mellitus with diabetic chronic kidney disease; I25.2 Old myocardial infarction; Z95.5 Presence of coronary angioplasty implant and graft; Z99.2 Dependence on renal dialysis; Z91.158 Patient's noncompliance with renal dialysis for other reason; Z79.4 Long term (current) use of insulin; Z88.6 Allergy status to analgesic agent; Z79.899 Other long term (current) drug therapy
CPT/HCPCS: 36415; 70551; 71045; 80048; 80076; 80320; 82140; 82962; 83735; 83880; 84145; 84443; 84484; 85025; 86705; 86709; 87340; 90935; 93005; 99285; J0360; J0692; J1200; J1815; J2270; G0480

== ENCOUNTER 2024-10-30 11:58 | Inpatient (IN) | payer OTHER ==
[~2024-10-30] VITALS: Ht 172.7 cm; Wt 74.4 kg
[2024-10-30] MEDS ORDERED: ONDANSETRON HCL 4MG/2ML INJ IV STA (12:18)
[2024-10-30] MEDS ORDERED: MORPHINE SULFATE 4 MG/ML INJ (FOR IV/IM USE) IV STA (12:18)
[2024-10-30 12:46] LABS: BASOPHILS % 0.6 % (0.0-2.0); EOSINOPHILS % 0.4 % (0.0-5.0); HEMATOCRIT. 33.1 % (36.0-48.0); HEMOGLOBIN. 10.3 g/dL (12.0-16.0); LYMPHOCYTES % 17.8 % (20.0-50.0); MEAN CORPUSCULAR HEMOGLOBIN 27.6 pg (28.0-32.0); MEAN CORPUSCULAR VOLUME 88.9 fL (81.0-99.0); MEAN PLATELET VOLUME 7.6 fl (7.4-10.4); MONOCYTES % 13.5 % (2.0-8.0); NEUTROPHILS % 67.7 % (40.0-76.0); PLATELET 236 x1000/uL (130-400); RED BLOOD CELL COUNT 3.72 mill/uL (4.2-5.4); RED CELL DISTRIBUTION WIDTH 18.1 % (11.6-14.6); WHITE BLOOD COUNT 4.9 x1000/uL (4.5-11.0)
[2024-10-30 12:52] LABS: CHLORIDE 109 mEq/L (98-107); POTASSIUM 5.5 mEq/L (3.5-5.1); SODIUM 145 mEq/L (136-145)
[2024-10-30 12:53] LABS: CALCIUM 8.9 mg/dL (8.7-10.4); CARBON DIOXIDE 26 mEq/L (21-32)
[2024-10-30 12:55] LABS: PROTHROMBIN TIME 11.4 sec (9.6-11.0)
[2024-10-30 12:58] LABS: GLUCOSE 66 mg/dL (70-105); UREA NITROGEN BLOOD 61 mg/dL (9-23)
[2024-10-30 12:59] LABS: TROPONIN I HIGH SENSITIVITY 22 ng/L (3.0-34)
[2024-10-30 13:00] LABS: ALANINE AMINOTRANSFERASE < 7 IU/L (10-49); ASPARTATE AMINOTRANSFERASE 12 IU/L (<34); BILIRUBIN DIRECT 0.1 mg/dL (<=3.0); BILIRUBIN TOTAL 0.3 mg/dL (0.1-1.0); PROTEIN TOTAL 8.2 g/dL (6.0-8.3)
[2024-10-30] MEDS ORDERED: DEXTROSE 50% WATER 50ML SYRINGE IV ONE (13:15)
[2024-10-30] MEDS ORDERED: SODIUM BICARBONATE 8.4% 50MEQ/50ML SYR IV ONE (13:15)
[2024-10-30] MEDS ORDERED: INSULIN REGULAR (HUMULIN R) 1000UNITS/10ML VIAL IV ONE (13:15)
[2024-10-30] MEDS ORDERED: CALCIUM GLUCONATE 1,000 MG in DEXT 5% WATER 100 ML IV ONE (13:15)
[2024-10-30] MEDS ORDERED: ALBUTEROL (0.083%) 2.5MG/3ML NEB HHN SCH ×2 (13:30→16:00)
[2024-10-30 13:33] LABS: CREATININE 11.3 mg/dL (0.6-1.0)
[2024-10-30] MEDS ORDERED: CEFTRIAXONE 2GM/50ML 50 ML IV ONE (15:00)
[2024-10-30] MEDS: MORPHINE SULFATE 4 MG/ML INJ (FOR IV/IM USE) IV NR (16:05)
[2024-10-30] MEDS: ONDANSETRON HCL 4MG/2ML INJ IV NR (16:06)
[2024-10-30] MEDS: CALCIUM GLUCONATE 1GM PREMIX 50 ML IV NR (16:29)
[2024-10-30] MEDS ORDERED: IPRATROPIUM/ALBUTEROL 0.5-3(2.5)MG/3ML NEB NEB PRN (17:15)
[2024-10-30] MEDS ORDERED: ONDANSETRON HCL 4MG/2ML INJ IV PRN (17:15)
[2024-10-30] MEDS ORDERED: ACETAMINOPHEN 325MG TABLET PO PRN (17:15)
[2024-10-30] MEDS ORDERED: ZOLPIDEM TARTRATE 5MG TABLET PO PRN (17:15)
[2024-10-30] MEDS ORDERED: CLONIDINE 0.1MG TABLET PO PRN (17:15)
[2024-10-30] MEDS: INSULIN REGULAR (HUMULIN R) 1000UNITS/10ML VIAL IV NR (18:00)
[2024-10-30] MEDS: DEXTROSE 50% WATER 50ML SYRINGE IV NR (18:00)
[2024-10-30] MEDS: SODIUM BICARBONATE 8.4% 50MEQ/50ML SYR IV NR (18:00)
[2024-10-30 20:30] VITALS: BP 127/64; PULSE 75; RESP 20; TEMP 36.61404; O2SAT 91
[2024-10-30] MEDS: INSULIN LISPRO 100 UNITS/ML SUBCUT SCH (21:00)
[2024-10-30] MEDS ORDERED: LEVETIRACETAM 1,000MG in NACL 100ML PREMIX IV ONE (21:15)
[2024-10-30] MEDS: LEVETIRACETAM 1000MG PREMIX 100 ML IV NR (21:20)
[2024-10-30] MEDS: DEXTROSE 50% WATER 50ML SYRINGE IV PRN (21:26)
[2024-10-30 21:30] VITALS: BP 127/64; PULSE 75; RESP 20; TEMP 36.6404
[2024-10-30] MEDS: BLOOD SUGAR DIAGNOSTIC STRIP TEST SCH (21:31)
[2024-10-30] MEDS: INSULIN GLARGINE 100 UNITS/ML SUBCUT SCH (21:32)
[2024-10-30] MEDS: HYDROCODONE/ACETAMINOPHEN 5/325MG TABLET PO PRN (21:38)
[2024-10-30] MEDS: ATORVASTATIN CALCIUM 40MG TABLET PO SCH (22:11)
[2024-10-30] MEDS: HYDRALAZINE HCL 25MG TABLET PO SCH (22:11)
[2024-10-30] MEDS: CARVEDILOL 6.25 MG TABLET PO SCH (22:11)
[2024-10-30] MEDS: ENOXAPARIN 30MG/0.3ML SYR SUBCUT SCH (22:12)
[2024-10-30] MEDS: PIPERACILLIN/TAZO 3.375G/50ML 50 ML IV SCH (22:12)
[2024-10-31] VITALS (14 sets, daily range): BP systolic 104–164; BP diastolic 60–81; PULSE 61–70; RESP 16–20; TEMP 36.28068–36.9474; O2SAT 94–100
[2024-10-31 00:06] LABS: CREATINE KINASE MB FRACTION 1.5 ng/mL (0.5-3.6)
[2024-10-31] MEDS: LEVOTHYROXINE SODIUM 75MCG TABLET PO SCH (06:41)
[2024-10-31 07:39] LABS: CALCIUM 8.6 mg/dL (8.7-10.4)
[2024-10-31 07:44] LABS: CREATINE KINASE MB FRACTION 1.3 ng/mL (0.5-3.6)
[2024-10-31 07:52] LABS: CREATININE 12.5 mg/dL (0.6-1.0)
[2024-10-31 08:48] LABS: HEMOGLOBIN. 8.5 g/dL (12.0-16.0); MEAN CORPUSCULAR HEMOGLOBIN 27.3 pg (28.0-32.0); MEAN CORPUSCULAR HGB CONC 30.5 g/dL (31.0-37.0); MEAN CORPUSCULAR VOLUME 89.4 fL (81.0-99.0); MEAN PLATELET VOLUME 7.7 fl (7.4-10.4); PLATELET 206 x1000/uL (130-400); RED BLOOD CELL COUNT 3.13 mill/uL (4.2-5.4); RED CELL DISTRIBUTION WIDTH 17.7 % (11.6-14.6); WHITE BLOOD COUNT 3.6 x1000/uL (4.5-11.0)
[2024-10-31 08:52] LABS: DIFFERENTIAL COMMENT 1
[2024-10-31] MEDS: CALCITRIOL 0.25MCG CAPSULE PO SCH (10:00)
[2024-10-31] MEDS: LEVETIRACETAM 500MG TABLET PO SCH (10:01)
[2024-10-31] MEDS: CLOPIDOGREL 75MG TABLET PO SCH (10:01)
[2024-10-31] MEDS: ASPIRIN 81MG EC TABLET PO SCH (10:01)
[2024-10-31 17:09] LABS: POTASSIUM 4.8 mEq/L (3.5-5.1)
[2024-11-01] VITALS: BP 122/58; PULSE 71; RESP 16; TEMP 36.33624; O2SAT 96
[2024-11-01 03:54] VITALS: BP 136/68; PULSE 74; RESP 18; TEMP 36.78072; O2SAT 96
[2024-11-01 08:00] VITALS: BP 157/52; PULSE 72; RESP 18; TEMP 36.61404; O2SAT 94
[2024-11-01] MEDS: SEVELAMER CARBONATE 800 MG TABLET PO SCH (09:00)
[2024-11-01] MEDS ORDERED: NALOXONE HCL 0.4MG/ML VIAL IV PRN (09:00)
[2024-11-01] MEDS: FOLIC ACID/VITAMIN B COMP W-C TABLET PO SCH (09:36)
[2024-11-01 12:00] VITALS: BP 137/61; RESP 18; TEMP 36.50292; O2SAT 68
[2024-11-01 13:28] VITALS: RESP 18
[2024-11-01] MEDS ORDERED: LEVO250T74 MT (13:28)
[2024-11-01 15:18] LABS: ANISOCYTOSIS 1+; PLATELET ESTIMATE NORMAL
[2024-11-01 16:53] VITALS: BP 137/61; PULSE 67; TEMP 97.9; O2SAT 97
== END 2024-11-01 17:15 | disposition home or self-care (01) | DRG 689 ==
LOC: ER 12:07 → 8WST 14:49 → EDBEDREQ 15:01 → EDBEDREQTM 15:01 → EDBEDREQ 15:10
PROVIDERS: ADMIT Internal Medicine; ATTEND Internal Medicine
PROC: 5A1D70Z Performance of Urinary Filtration, Intermittent, Less than 6 Hours Per Day (ICD-10-PCS; principal; 2024-10-31)
DX: N30.00 Acute cystitis without hematuria (principal); N18.6 End stage renal disease; I16.1 Hypertensive emergency; I13.2 Hypertensive heart and chronic kidney disease with heart failure and with stage 5 chronic kidney disease, or end stage renal disease; I50.32 Chronic diastolic (congestive) heart failure; D63.1 Anemia in chronic kidney disease; E11.22 Type 2 diabetes mellitus with diabetic chronic kidney disease; E87.5 Hyperkalemia; G40.909 Epilepsy, unspecified, not intractable, without status epilepticus; H40.9 Unspecified glaucoma; I25.10 Atherosclerotic heart disease of native coronary artery without angina pectoris; I25.2 Old myocardial infarction; Z79.4 Long term (current) use of insulin; Z88.6 Allergy status to analgesic agent; Z98.61 Coronary angioplasty status; Z99.2 Dependence on renal dialysis; Z88.8 Allergy status to other drugs, medicaments and biological substances; Z79.899 Other long term (current) drug therapy
CPT/HCPCS: 36415; 71045; 74176; 80048; 80076; 82550; 82553; 82962; 83605; 83880; 84132; 84484; 85025; 90935; 93005; 93970; 99291; J0610; J0696; J1650; J1815; J1953; J2270; J2405; J2543; J3490; J7060

== ENCOUNTER 2024-11-06 23:50 | Inpatient (IN) | payer OTHER ==
[~2024-11-06] VITALS: Ht 172.7 cm; Wt 75.3 kg
[~2024-11-06 23:50] MED LIST changes: +LEVO250T74 MT; -LINE600T11 PO
[2024-11-07] VITALS (10 sets, daily range): BP systolic 138–181; BP diastolic 66–93; PULSE 65–74; RESP 16–18; TEMP 36.44736–36.78072; O2SAT 98–99
[2024-11-07] MEDS: MORPHINE SULFATE 4 MG/ML INJ (FOR IV/IM USE) IV ONE (01:12)
[2024-11-07 01:50] LABS: BASOPHILS % 0.8 % (0.0-2.0); EOSINOPHILS % 0.6 % (0.0-5.0); HEMATOCRIT. 28.1 % (36.0-48.0); HEMOGLOBIN. 8.8 g/dL (12.0-16.0); LYMPHOCYTES % 20.4 % (20.0-50.0); MEAN CORPUSCULAR HEMOGLOBIN 26.9 pg (28.0-32.0); MEAN CORPUSCULAR HGB CONC 31.5 g/dL (31.0-37.0); MEAN CORPUSCULAR VOLUME 85.2 fL (81.0-99.0); MEAN PLATELET VOLUME 7.7 fl (7.4-10.4); MONOCYTES % 14.5 % (2.0-8.0); NEUTROPHILS % 63.7 % (40.0-76.0); PLATELET 196 x1000/uL (130-400); RED BLOOD CELL COUNT 3.29 mill/uL (4.2-5.4); RED CELL DISTRIBUTION WIDTH 16.8 % (11.6-14.6); WHITE BLOOD COUNT 2.7 x1000/uL (4.5-11.0)
[2024-11-07 01:51] LABS: CHLORIDE 103 mEq/L (98-107); POTASSIUM 5.9 mEq/L (3.5-5.1); SODIUM 139 mEq/L (136-145)
[2024-11-07 01:52] LABS: CARBON DIOXIDE 26 mEq/L (21-32)
[2024-11-07 01:53] LABS: CALCIUM 8.9 mg/dL (8.7-10.4)
[2024-11-07 01:57] LABS: GLUCOSE 135 mg/dL (70-105); UREA NITROGEN BLOOD 48 mg/dL (9-23)
[2024-11-07 02:00] LABS: PARTIAL THROMBOPLASTIN TIME 30.5 sec (23.4-31.0); PROTHROMBIN TIME 11.4 sec (9.6-11.0)
[2024-11-07 02:09] LABS: ETHANOL BLOOD < 10 mg/dL (<10)
[2024-11-07 02:10] LABS: CREATININE 9.2 mg/dL (0.6-1.0)
[2024-11-07] MEDS: FUROSEMIDE 40MG/4ML VIAL IV NR (03:40)
[2024-11-07] MEDS: SODIUM POLYSTYRENE SULFONATE 15 G/60 ML BOT PO NR (03:41)
[2024-11-07] MEDS: CALCIUM GLUCONATE 100MG/ML 10ML VIAL IV NR (03:41)
[2024-11-07 03:55] LABS: TROPONIN I HIGH SENSITIVITY 216 ng/L (3.0-34)
[2024-11-07] MEDS ORDERED: HEPARIN BOLUS PRN aPTT <30 IV (04:15)
[2024-11-07] MEDS ORDERED: HEPARIN BOLUS PRN aPTT 30-44 IV (04:15)
[2024-11-07] MEDS: ASPIRIN 325MG EC TABLET PO NR (04:17)
[2024-11-07] MEDS: MORPHINE SULFATE 2 MG/ML INJ (NOT FOR IM USE) IV ONE (04:19)
[2024-11-07] MEDS: HEPARIN 60 UNITS/KG BOLUS IV NR (04:58)
[2024-11-07] MEDS: HEPARIN 25,000 UNITS PREMIX 250 ML IV SCH (05:20)
[2024-11-07 07:53] LABS: HEPATITIS B SURFACE ANTIGEN NEGATIVE (Negative)
[2024-11-07 08:13] LABS: HEPATITIS A AB IGM NEGATIVE (Negative)
[2024-11-07 08:14] LABS: HEPATITIS B CORE AB IGM NEGATIVE (Negative); HEPATITIS C AB NON REACTIVE (Neg) (Negative)
[2024-11-07] MEDS ORDERED: ACETAMINOPHEN 325MG TABLET PO PRN (09:00)
[2024-11-07] MEDS ORDERED: IPRATROPIUM/ALBUTEROL 0.5-3(2.5)MG/3ML NEB NEB PRN (09:00)
[2024-11-07] MEDS ORDERED: CLONIDINE 0.1MG TABLET PO PRN (09:00)
[2024-11-07] MEDS ORDERED: ENOXAPARIN 40MG/0.4ML SYR SUBCUT SCH (09:00)
[2024-11-07] MEDS: BLOOD SUGAR DIAGNOSTIC STRIP TEST SCH (11:45)
[2024-11-07] MEDS: INSULIN LISPRO 100 UNITS/ML SUBCUT SCH (12:15)
[2024-11-07] MEDS: HYDRALAZINE HCL 25MG TABLET PO SCH (13:17)
[2024-11-07] MEDS: CARVEDILOL 6.25 MG TABLET PO SCH (13:17)
[2024-11-07] MEDS: PANTOPRAZOLE SODIUM 40 MG/VIAL IV SCH (13:18)
[2024-11-07] MEDS: CALCITRIOL 0.25MCG CAPSULE PO SCH (13:18)
[2024-11-07] MEDS: CLOPIDOGREL 75MG TABLET PO SCH (13:18)
[2024-11-07] MEDS: ENOXAPARIN 80MG/0.8ML SYR SUBCUT SCH (13:18)
[2024-11-07] MEDS: ASPIRIN 81MG EC TABLET PO SCH (13:18)
[2024-11-07] MEDS: METOPROLOL TARTRATE 25MG TABLET PO SCH (20:50)
[2024-11-07] MEDS: ATORVASTATIN CALCIUM 40MG TABLET PO SCH (20:51)
[2024-11-07] MEDS: AMLODIPINE 5MG TABLET PO SCH (20:51)
[2024-11-07] MEDS: INSULIN GLARGINE 100 UNITS/ML SUBCUT SCH (21:04)
[2024-11-07] MEDS: ZOLPIDEM TARTRATE 5MG TABLET PO PRN (22:15)
[2024-11-08] VITALS: BP 120/55; PULSE 65; RESP 18; TEMP 37.11408; O2SAT 98
[2024-11-08 01:47] LABS: CREATINE KINASE MB FRACTION 1.4 ng/mL (0.5-3.6)
[2024-11-08] MEDS ORDERED: NALOXONE HCL 0.4MG/ML VIAL IV PRN (03:15)
[2024-11-08] MEDS: MORPHINE SULFATE 2 MG/ML INJ (NOT FOR IM USE) IV PRN (03:39)
[2024-11-08 05:30] VITALS: BP 151/71; PULSE 61; RESP 20; TEMP 36.28068; O2SAT 96
[2024-11-08 08:00] VITALS: BP 161/78; PULSE 61; RESP 18; TEMP 36.83628; TEMP 36.9184; O2SAT 97
[2024-11-08] MEDS: CLOPIDOGREL 75MG TABLET PO SCH (09:47)
[2024-11-08] MEDS: LEVOTHYROXINE SODIUM 75MCG TABLET PO SCH (09:47)
[2024-11-08 12:00] VITALS: BP 155/70; PULSE 65; RESP 18; TEMP 37.00296; O2SAT 96
[2024-11-08] MEDS ORDERED: LOSARTAN 25 MG TABLET PO SCH (13:45)
[2024-11-08] MEDS: HYDRALAZINE HCL 25MG TABLET PO SCH (15:16)
[2024-11-08 16:00] VITALS: BP_SYST 94; PULSE 60; RESP 17; TEMP 36.83628
[2024-11-08 20:00] VITALS: BP 135/68; PULSE 60; RESP 18; TEMP 36.16956
[2024-11-09] VITALS: BP 136/72; PULSE 63; RESP 18; TEMP 36.3918
[2024-11-09 04:00] VITALS: BP 122/67; PULSE 67; RESP 18; TEMP 36.22512
[2024-11-09 08:00] VITALS: BP 143/87; PULSE 69; RESP 18; TEMP 36.55848; O2SAT 94
[2024-11-09] MEDS: ONDANSETRON HCL 4MG/2ML INJ IV PRN (11:07)
[2024-11-09 12:00] VITALS: BP 114/60; PULSE 57; RESP 20; TEMP 36.55848; O2SAT 94
[2024-11-09 16:00] VITALS: BP 115/69; PULSE 58; RESP 20; TEMP 36.55848; O2SAT 97
[2024-11-09 20:00] VITALS: BP 150/64; PULSE 57; RESP 19; TEMP 36.61404; O2SAT 97
[2024-11-10] VITALS (7 sets, daily range): BP systolic 97–151; BP diastolic 56–76; PULSE 53–66; RESP 17–19; TEMP 36.55848–36.89184; O2SAT 92–98
[2024-11-10 05:23] LABS: BG BASE EXCESS -9.4 mmol/L (-2.0-3.0); BG DEOXYHEMOGLOBIN 0.3 % (0.0-5.0); BG FRACTION INSPIRED OXYGEN 100; BG HCO3 ACT 17.3 mmol/L (21.0-28.0); BG METHEMOGLOBIN 0.3 % (0.5-1.5); BG OXYGEN SATURATION 99.7 % (94.0-98.0); BG OXYHEMOGLOBIN 98.4 % (94.0-98.0); BG PCO2 40.9 mmHg (32.0-45.0); BG PH 7.243 (7.350-7.450); BG PO2 280.6 mmHg (83.0-108.0); BG SAMPLE SITE RIGHT BRACHIAL; BG TOTAL HEMOGLOBIN 8.6 g/dL (12.0-16.0); BG VENT MODE MASK - NRB
[2024-11-10] MEDS: DEXTROSE 50% WATER 50ML SYRINGE IV NR (06:38)
[2024-11-10] MEDS: CALCIUM CHLORIDE 1GM/10ML SYR IV NR (06:39)
[2024-11-10] MEDS: INSULIN REGULAR (HUMULIN R) 1000UNITS/10ML VIAL IV NR (06:42)
[2024-11-10] MEDS: LEVETIRACETAM 1000MG PREMIX 100 ML IV SCH (09:33)
[2024-11-10] MEDS ORDERED: LORAZEPAM 2MG/ML INJ IV PRN (11:45)
[2024-11-10] MEDS ORDERED: DEXTROSE 50% WATER 50ML SYRINGE IV PRN (13:45)
[2024-11-10] MEDS: INSULIN LISPRO 100 UNITS/ML SUBCUT NR (14:17)
[2024-11-10] MEDS ORDERED: BLOOD SUGAR DIAGNOSTIC STRIP TEST SCH (16:40)
[2024-11-10] MEDS: INSULIN LISPRO 100 UNITS/ML SUBCUT SCH (18:55)
[2024-11-10] MEDS: HYDRALAZINE HCL 25MG TABLET PO SCH (21:00)
[2024-11-10] MEDS ORDERED: LEVETIRACETAM 500MG in NACL 100ML PREMIX IV SCH (21:00)
[2024-11-10] MEDS: LEVETIRACETAM 500MG PREMIX 100ML IV SCH (21:01)
[2024-11-11] VITALS (12 sets, daily range): BP systolic 97–134; BP diastolic 55–69; PULSE 53–66; RESP 17–19; TEMP 36.33624–36.6696; O2SAT 96–99
[2024-11-11] MEDS: DEXTROSE 50% WATER 50ML SYRINGE IV PRN (06:14)
[2024-11-11] MEDS ORDERED: KEPP500 MT (13:41)
[2024-11-12] VITALS (9 sets, daily range): BP systolic 110–136; BP diastolic 52–75; PULSE 61–71; RESP 18–19; TEMP 36.28068–36.72516; O2SAT 95–97
[2024-11-12] MEDS: FOLIC ACID/VITAMIN B COMP W-C TABLET PO SCH (11:18)
[2024-11-12] MEDS: SEVELAMER CARBONATE 800 MG TABLET PO SCH (11:44)
== END 2024-11-12 14:55 | disposition home or self-care (01) | DRG 640 ==
LOC: ER 23:50 → EDBEDREQTM 11-07 02:18 → EDBEDREQ 11-07 02:18 → 5WST 11-07 02:59 → EDBEDREQTM 11-07 03:20 → EDBEDREQ 11-07 03:20 → 7EST 11-08 05:05
PROVIDERS: ADMIT Internal Medicine; ATTEND Internal Medicine
PROC: 5A1D70Z Performance of Urinary Filtration, Intermittent, Less than 6 Hours Per Day (ICD-10-PCS; principal; 2024-11-07)
PROC: 5A1D70Z Performance of Urinary Filtration, Intermittent, Less than 6 Hours Per Day (ICD-10-PCS; 2024-11-10)
PROC: 5A1D70Z Performance of Urinary Filtration, Intermittent, Less than 6 Hours Per Day (ICD-10-PCS; 2024-11-12)
DX: E87.5 Hyperkalemia (principal); N18.6 End stage renal disease; I13.2 Hypertensive heart and chronic kidney disease with heart failure and with stage 5 chronic kidney disease, or end stage renal disease; I16.1 Hypertensive emergency; I50.32 Chronic diastolic (congestive) heart failure; G40.89 Other seizures; I25.118 Atherosclerotic heart disease of native coronary artery with other forms of angina pectoris; E11.22 Type 2 diabetes mellitus with diabetic chronic kidney disease; D63.1 Anemia in chronic kidney disease; R33.9 Retention of urine, unspecified; E11.65 Type 2 diabetes mellitus with hyperglycemia; G89.29 Other chronic pain; H40.9 Unspecified glaucoma; I25.2 Old myocardial infarction; Z98.61 Coronary angioplasty status; Z99.2 Dependence on renal dialysis; Z79.4 Long term (current) use of insulin; Z88.6 Allergy status to analgesic agent; Z88.8 Allergy status to other drugs, medicaments and biological substances; Z79.899 Other long term (current) drug therapy
CPT/HCPCS: 36415; 36600; 71045; 80048; 80320; 82375; 82550; 82553; 82805; 82962; 83036; 83880; 84484; 85025; 86705; 86709; 87340; 90935; 93005; 93306; 93880; 99285; C1893; J0610; J1644; J1650; J1815; J1940; J1953; J2270; J2405; J2470; J3490; G0480